=== PATIENT | male | born 1985 | race Caucasian/White ===

== ENCOUNTER 2024-11-19 07:00 | Emergency (ER) | payer OTHER, SELFPAY ==
--- NOTE | ~2024-11-19 | XR_ITS ---
EXAMINATION: XR LUMBOSACRAL SPINE CLINICAL INFORMATION: lowerback pain w/ radiation down L 4 COMPARISON: X-ray dated December 19, 2016 TECHNIQUE: Three views of the lumbosacral spine. FINDINGS: No acute cortical disruption or malalignment. No lytic or blastic lesions. Sclerosis and the sacroiliac joints, bilaterally. XR/XR lumbar spine 2-3V IMPRESSION: No acute fracture or gross listhesis. The possibility of a subtle grade 1 anterolisthesis at L5-S1 cannot be entirely excluded. Recommend CT versus MRI lumbar spine. Electronically signed by: Kevin Slade MD 11/19/2024 10:38 AM [facility]
--- NOTE | ~2024-11-19 | CT_ITS ---
EXAMINATION: CT LUMBAR SPINE WITHOUT CONTRAST CLINICAL INFORMATION: Lower back pain, severe. COMPARISON: No prior CT. Lumbar spine x-rays earlier same day. TECHNIQUE: CT imaging of the lumbar spine was done without IV contrast, utilizing spiral technique. Sagittal, coronal, and thin section axial reformatted images were constructed from the axial data set. This CT examination was performed using dose optimization techniques as appropriate, variously including the following: *Automated exposure control *Adjustment of mA and/or kV according to patient size (this includes techniques or standardized protocols for targeted exams where dose is matched to indication/reason for exam; i.e. extremities or head) *Use of iterative reconstruction technique DLP: 1094 mGy-cm FINDINGS: CORONAL ALIGNMENT: -Trace levoconvex scoliosis, possibly positional. SAGITTAL ALIGNMENT: - Normal lordosis. -There is a grade 1 spondylolisthesis L5 on S1 measuring 5 mm. Full-thickness L5 pars defects. -Sagittal alignment is otherwise normal. LUMBOSACRAL JUNCTION: -Normal. There are 5 [id number] lumbar-type vertebral bodies. VERTEBRAL BODIES/BONE: -Well maintained with normal height. No compression fractures, anomalies or other deformities. No suspicious bone lesions. DISCS: -Mild disc space narrowing noted L5-S1. Remainder of the intervertebral discs appear preserved. SPINAL CANAL: -Mild congenital spinal canal narrowing most notable spanning L2-L4. This is complicated by dorsal epidural lipomatosis. See below. AXIAL DISC SPACE IMAGES: T12-L1: No central canal or neural foraminal narrowing. Normal facets. L1-L2: Mild facet arthropathy bilaterally. Shallow diffuse disc bulge present. Dorsal epidural lipomatosis. Mild central canal narrowing. Mild neural foraminal narrowing bilaterally. L2-L3: Shallow diffuse disc bulge superimposed upon a congenitally narrow canal, with dorsal epidural lipomatosis. Mild bilateral hypertrophic degenerative facet changes. Mild central canal stenosis, and mild bilateral neural foraminal stenosis. L3-L4: Shallow diffuse disc bulge superimposed upon a congenitally narrow canal, with dorsal epidural lipomatosis. Mild hypertrophic degenerative facet changes bilaterally. Moderate central canal stenosis, moderate subarticular recess stenosis bilaterally, and mild to moderate bilateral neural foraminal stenosis. L4-L5: Shallow concentric disc bulge is present, mild dorsal and lateral epidural lipomatosis, mild arthritic hypertrophic facet changes, mild posterior ligamentous thickening/infolding, resulting in mild central canal narrowing, and mild to moderate bilateral neural foraminal narrowing. L5-S1: 5 mm, grade 1 spondylolisthesis. Full-thickness L5 pars defects. There is a diffuse disc osteophytic bulge, asymmetrically prominent to the right lateral and right foraminal zones. This indents upon the ventral thecal sac, but does not result in significant central canal narrowing. There is mild right lateral recess narrowing. There is severe right neural foraminal impingement. There is moderate left neural foraminal narrowing. IMAGED SI JOINTS: -Normal. PARAVERTEBRAL AND INCLUDED EXTRASPINAL SOFT TISSUES: -Hepatomegaly and fatty infiltration, partially imaged. -Probable size gallstones within an otherwise normal-appearing gallbladder. -Normal kidneys. Normal aorta. -Normal appendix and bowel structures. No lymphadenopathy. CT/CT lumbar spine wo IV con IMPRESSION: 1. There is a 5 mm grade 1 spondylolisthesis L5-S1. There is an associated disc bulge which is asymmetrically prominent to the right neural foramen at this level, resulting in severe right neural foraminal impingement. 2. No additional bony abnormalities aside from multilevel mild degenerative facet changes. 3. Congenital spinal canal narrowing is present spanning L2-L4, which is exacerbated by mild dorsal epidural lipomatosis at these levels. There is moderate central canal stenosis at L3-4. 4. Diffuse fatty infiltration of the liver with mild liver enlargement. 5. Cholelithiasis. 6. See the body the report for details and additional ancillary findings. Electronically signed by: Isidro Jloley MD 11/19/2024 02:25 PM [facility] [place]
[2024-11-19 07:08] VITALS: BP 123/78; PULSE 110; RESP 16; TEMP 37; O2SAT 96; BMI 42.9
[2024-11-19 08:53] VITALS: BP 117/79; PULSE 108; RESP 19; TEMP 36.6; O2SAT 95
[2024-11-19] MEDS: Ketorolac Tromethamine 30 MG/ML VIAL IM (09:38)
[2024-11-19] MEDS: Lidocaine 4 % Patch ADH..PATCH 1 PATCH TRANSDERMA (09:38)
--- NOTE | 2024-11-19 09:51 | ED_ITS ---
HPI - Back Pain/Injury General Chief Complaint: Back Pain/Injury Stated Complaint: back pain rad to feet/ numb toes Time Seen by Provider: 11/19/24 09:13 Source: patient Mode of arrival: ambulatory Limitations: no limitations History of Present Illness ED Provider: PARAMJIT Mojica HPI Narrative: 39-year-old male past medical history significant for former IV drug abuse, obesity presenting to the emergency department with low back pain ongoing for the past few weeks acutely worsening over the past few days. He thinks this pain started after twisting. Patient reports pain is worse with movement, better at rest or when lying on his side. Pain is predominantly felt to his right lower back and radiates down the back of his right lower extremity then moves to his anterior hyatt and down to his right foot. At times accompanied by tingling however no numbness. He has had pain like this in the past years ago. He recently had an x-ray which was done by his PCP which showed possible arthri tis per patient. He denies saddle anesthesias, trauma, urinary/bowel incontinence/retention, fevers, chills. Related Data Allergies Allergy/AdvReac Type Severity Reaction Status Date / Time bee pollen [BEE STINGS] Allergy Unknown SWELLING Verified 11/19/24 07:13 bee stings Allergy Unknown inflammatio Uncoded 08/28/23 15:23 n Review of Systems Review of Systems: Yes all other systems are reviewed and are negative [facility] Past Medical History Attestation statement: The following information was validated with the patient. Source: old records reviewed and nursing notes reviewed Social History Social History Advance Directives: No Advance Directives Information Provided: No Physical Exam Vital Signs: Vital Signs: Last Vital Signs Temp 97.9 F 11/19/24 08:53 Pulse 108 H 11/19/24 08:53 Resp 19 11/19/24 08:53 BP 117/79 11/19/24 08:53 Pulse Ox 95 11/19/24 08:53 O2 Del Method Room Air 11/19/24 08:53 BMI result Body Mass Index 42.9 vss Appearance: Alert.? Oriented X3.? No acute distress.? Head: Normocephalic, atraumatic, no step-offs or deformities Eyes: Pupils equal, round and reactive to light.? Neck: Normal inspection.? Neck supple.? CVS: Normal heart rate and rhythm.? Pulses normal.? Respiratory: No respiratory distress.? Breath sounds normal.? Abdomen: Soft and nontender.? Skin: Skin warm and dry.? Normal skin color.? Normal skin turgor.? Extremities: No lower extremity edema.? No calf ttp. 5/5 strength to bilateral upper and lower extremities Neuro: Oriented X 3.? No motor deficit.? No sensory deficit. CN 2-12 intact Course Reevaluation(s) Reevaluation #1: Patient received Toradol he still appears extremely uncomfortable he is unable to sit still. He is refusing narcotics due to his history of narcotic abuse. His x-ray lumbar spine as showing no acute fractures or gross C6 however a subtle grade 1 anterolisthesis of L5-S1 can not be entirely excluded due to patient's severity of symptoms and inability to sit still in severe pain will order CT noncontrast of lumbar spine to further evaluate this. Time: 11:51 Medications Administered Discontinued Medications Generic Name Dose Route Start Last Admin Trade Name Betoq PRN Reason Stop Dose Admin Ketorolac Tromethamine 30 mg 11/19/24 09:13 11/19/24 09:38 Ketorolac Tromethamine 30 Mg/Ml Vial IM 11/19/24 09:14 30 mg ONCE ONE Administration Lidocaine 1 patch 11/19/24 09:13 11/19/24 09:38 Lidocaine 4 % Patch Adh..Patch TRANSDERMA 11/19/24 09:14 1 patch ONCE ONE Administration Protocol Medical Decision Making Medical Decision Making [facility] Narrative: 39-year-old male presents with low back pain radiating down to his right lower extremity ongoing for the past few weeks acutely worsening over the past few days. Physical exam he has paraspinous tenderness in the lumbosacral region on the right. No saddle anesthesias. Neurological assessment nonfocal. No weakness appreciated. Patient ambulatory into room without difficulty. History and physical exam concerning for L4-L5 radiculopathy. Other differentials include facet mediated pain, herniated disc. Unlikely cauda equina, cord compression. Plan will obtain another x-ray, give Toradol, Lidoderm patch. Differential Diagnosis Differential Diagnoses: The differential diagnosis associated with the presentation includes (History and physical exam concerning for L4-L5 radiculopathy. Other differentials include facet mediated pain, herniated disc. Unlikely cauda equina, cord compression.) Admission/Observation Consideration of admission/observation: Escalation of care including admission/observation considered (No indication) Independent Interpretation I performed an independent interpretation of an: Plain X-Ray (XR/XR lumbar spine 2-3V IMPRESSION: No acute fracture or gross listhesis. The possibility of a subtle grade 1 anterolisthesis at L5-S1 cannot be entirely excluded. Recommend CT versus MRI lumbar spine. ) Radiology Impression Discussion of test interpretation with radiology: I have reviewed the radiologist's reading. Tests considered The following testing was considered but not selected: No indication for MRI no red flag symptoms. Prescription Management I considered prescription management with: Pain Medication and Other (Prednisone) Critical Care Time Critical Care Time Critical Care Time: Yes Total Critical Care Time: 35 Attestation: I attest to this time spent taking care of the patient, obtaining history, physical, reviewing labs, imaging, treatment of patients condition +/- specialist/hospitalist consult Discharge Plan Discharge Clinical Impression: Lumbar radiculopathy Patient Disposition: Home, Self-Care Print Language: Mauritian
[2024-11-19] MEDS: Acetaminophen 325 MG TABLET 975 MG PO (11:54)
[2024-11-19 13:49] VITALS: BP 118/81; PULSE 106; RESP 18; TEMP 36.7; O2SAT 96
[2024-11-19 16:14] VITALS: BP 118/81; PULSE 106; RESP 18; TEMP 36.7; O2SAT 96
== END 2024-11-19 16:18 | disposition home or self-care (01) ==
PROVIDERS: Emergency Provider Emergency Medicine; PCP Internal Medicine
DX: M54.16 Radiculopathy, lumbar region (principal); M54.2 Cervicalgia
CPT/HCPCS: 72100; 72131; 99283; J1885

== ENCOUNTER → 2024-11-19 09:51 | Outpatient (BNV) | payer OTHER, SELFPAY | PROVIDERS: Emergency Provider Emergency Medicine; PCP Internal Medicine; Visit Provider Radiology Diagnostic Radiology | DX: M54.59 Other low back pain (principal); M43.17 Spondylolisthesis, lumbosacral region; M48.062 Spinal stenosis, lumbar region with neurogenic claudication; K80.20 Calculus of gallbladder without cholecystitis without obstruction | CPT/HCPCS: 72100; 72131 ==

== ENCOUNTER 2024-12-08 11:37 | Emergency (ER) | payer OTHER, SELFPAY ==
--- NOTE | ~2024-12-08 | CT_ITS ---
CLINICAL HISTORY: lower back pain CT abdomen and pelvis with contrast Comparison: CT - CT ABDOMEN PELVIS W IV CON - 12/08/24 16:[address]/CO/SR - CT LUMBAR SPINE WO IV CON - 11/19/24 12:34 EST Findings: The lung bases are clear. Calculi within the gallbladder lumen. Diffusely decreased hepatic density. Remaining solid organs are within normal limits. No bowel obstruction, pneumoperitoneum, or pneumatosis. Pelvic contents unremarkable. Normal appendix. Grade 1 anterolisthesis of L5 on S1. Bilateral L5-S1 pars interarticularis defects. IMPRESSION: 1. No acute process. 2. Cholelithiasis. 3. Hepatic steatosis. 5. Grade 1 isthmic spondylolisthesis at L5-S1 This document has been electronically signed by: Sharon Ring MD on 12/08/2024 17:54:02
--- NOTE | ~2024-12-08 | CT_ITS ---
CLINICAL HISTORY: lower back pain CT lumbar spine without contrast Comparison: CT/TX/SR - CT LUMBAR SPINE WO IV CON - 11/19/24 12:34 EST Findings: Grade 1 anterolisthesis of L5 on S1. No acute fractures or dislocations. Bilateral L5-S1 pars interarticularis defects Multilevel disc space narrowing and endplate osteophyte formation, as well as facet hypertrophy. Normal visualized abdominal contents. IMPRESSION: 1. No acute process. 2. Grade 1 isthmic spondylolisthesis at L5-S1. This document has been electronically signed by: Sharon Ring MD on 12/08/2024 18:23:08
[2024-12-08 11:47] VITALS: BP 158/98; PULSE 83; O2SAT 98
[2024-12-08 11:52] VITALS: BP 140/70; PULSE 96; RESP 18; TEMP 36.8; O2SAT 95; BMI 42.2
--- NOTE | 2024-12-08 11:54 | ED_ITS ---
HPI - General Adult General Chief complaint: Back Pain/Injury Stated complaint: SCIATICA PAIN Time Seen by Provider: 12/08/24 11:48 Source: patient Mode of arrival: EMS Limitations: no limitations History of Present Illness HPI narrative: This is a 39-year-old man with a past medical history of IVDU (this is a were 15 years, on methadone) presents by EMS for evaluation of back pain. Patient reports that he was here 2 weeks ago with the same right lower back pain. Patient reports that he woke up this morning having pain in his right lower back radiating down the entirety of his right leg. He states no traumatic injury. He states no fevers or chills. He states no lower extremity or saddle paresthesias. He states no incontinence of urine or stool. He states no urinary retention or obstipation. He states no chest pain or dyspnea. He states no abdominal pain. He states no spinal surgery. He states taking no blood thinning medications. He states that he took gabapentin earlier for pain, but states he did not take any acetaminophen or NSAIDs. Related Data Previous Rx's ?Medication ?Instructions ?Recorded acetaminophen 325 mg tablet 650 mg (2 x 325 mg) PO Q6H PRN 11/19/24 (Tylenol) fever or pain #30 tabs cyclobenzaprine 10 mg tablet 10 mg PO BEDTIME PRN muscle spasm 11/19/24 #7 tabs diazepam 2 mg tablet (Valium) 2 mg PO BID PRN muscle spasm #10 11/19/24 tabs ketorolac 10 mg tablet 10 mg PO TID PRN pain 5 days #15 11/19/24 tabs prednisone 20 mg tablet 40 mg (2 x 20 mg) PO DAILY 5 days 11/19/24 #10 tabs cyclobenzaprine 10 mg tablet 10 mg PO TID PRN muscle spasm #14 12/08/24 tabs Allergies Allergy/AdvReac Type Severity Reaction Status Date / Time bee pollen [BEE STINGS] Allergy Unknown SWELLING Verified 12/08/24 11:56 bee stings Allergy Unknown inflammatio Uncoded 08/28/23 15:23 n Review of Systems 2 Review of Systems: ROS as per HPI Physical Exam ED Vital Signs: Vital Signs - 24 hr 12/08/24 11:52 12/08/24 17:21 Temperature 98.3 F 98.1 F Pulse Rate 96 80 Respiratory Rate 18 18 Blood Pressure 140/70 H 137/76 Pulse Oximetry 95 94 Oxygen Delivery Method Room Air Room Air BMI result Body Mass Index 42.2 Gen: NA0 albeit overtly uncomfortable appearing, AOx3 HEENT: NCAT, EOMI, normal conjunctiva CV: RRR, no murmurs appreciated, 2+ bilateral DP/PT pulses Pulm: CTAB, no increased work of breathing GI: Soft, NTND, no rebound, guarding or rigidity, no b/l CVAT MSK: No midline vertebral tenderness to palpation overlying skin changes/crepitus, bilateral lower extremity compartments are soft with intact overlying skin, 5/5 strength with bilateral hip/knee/ankle/hallux flexion/extension Neuro: Grossly non focal, sensation intact to light touch in bilateral lower extremity dermatomes L2-S2 Medications Administered Discontinued Medications Generic Name Dose Route Start Last Admin Trade Name Freq PRN Reason Stop Dose Admin Acetaminophen 975 mg 12/08/24 11:52 12/08/24 12:02 Acetaminophen 325 Mg Tablet PO 12/08/24 11:53 975 mg ONCE ONE Administration Cyclobenzaprine HCl 10 mg 12/08/24 13:57 12/08/24 14:25 Cyclobenzaprine Hcl 10 Mg Tablet PO 12/08/24 13:58 10 mg ONCE ONE Administration Diazepam 5 mg 12/08/24 12:34 12/08/24 12:39 Diazepam 5 Mg Tablet PO 12/08/24 12:35 5 mg ONCE ONE Administration Sodium Chloride 1,000 mls @ 999 mls/hr 12/08/24 14:00 12/08/24 14:22 Ns IV 12/08/24 15:00 999 mls/hr .Q1H1M ABHISHEK Administration Iohexol 100 ml 12/08/24 16:39 12/08/24 16:39 Iohexol 350 Mg/Ml 100 Ml Infus..Btl IV 12/08/24 16:40 85 ml ONCE ONE Administration Ketorolac Tromethamine 30 mg 12/08/24 11:49 12/08/24 12:02 Ketorolac Tromethamine 30 Mg/Ml Vial IM 12/08/24 11:50 30 mg ONCE ONE Administration Lidocaine 1 patch 12/08/24 11:49 12/08/24 12:01 Lidocaine 4 % Patch Adh..Patch TRANSDERMA 12/08/24 11:50 1 patch ONCE ONE Administration Protocol Medical Decision Making Medical Decision Making [facility] Narrative: Differential diagnosis includes, but is not limited to spinal stenosis, herniated disc, lumbar radiculopathy, strain. Patient is afebrile and hemodynamically stable on room air. Exam is benign and reassuring. Patient has no focal neurological deficits that would suggest cord compression or need for emergent MRI. Given patient's history exam with a recent CT imaging and no interval trauma or ?red flag? symptoms I do not think that repeat imaging is indicated at this time otherwise. I suspect that this is likely a musculoskeletal etiology pain with associated radiculopathy. I reviewed recent imaging from November 19, 2024 demonstrating spondylolisthesis at L5-S1 and associated disc bulge. Congenital spinal canal narrowing spanning L2-L4 and moderate central canal stenosis L3-L4. Patient was treated supportively with Toradol, Lidoderm patch and Tylenol. On reexamination, patient endorses ongoing severe pain. Thus, will obtain CT imaging and expand differential to include biliary colic, nephrolithiasis, ureterolithiasis. I will attempt to provide additional pain relief with valium. We will obtain screening blood work. On reexamination, patient reports ongoing pain although a CT imaging results. We provided cyclobenzaprine. Repeat CT imaging as below unremarkable for any acute abnormalities. On re-examination, patient is well-appearing and in no acute distress. ?Patient states symptoms have significantly improved after cyclobenzaprine and he ambulates independently. ?There is no indication for further emergent evaluation in this otherwise well-appearing patient as above. ?Patient is provided written and verbal instructions, educational materials, prescription for cyclobenzaprine, referral to spine Center, recommendations for outpatient follow-up, strict return precautions and teach back is performed. ?Patient states understanding and agreement with plan of care. ?Patient is discharged home in stable and improved condition. Critical Care Time: A total of 45 minutes spent in direct patient care with coordinating critical resuscitation, procedures, reviewing records, discussing with consultants, reviewing labs, and/or managing patient. Admission/Observation Consideration of admission/observation: Escalation of care including admission/observation considered Lab Data [facility] Lab Attestation statement: I reviewed the patient's lab results. I independently reviewed and interpreted patient's blood work, which demonstrates a leukocytosis of 15.1 (which I think is reactive in nature and secondary to patient's sciatica pain), stable anemia with hemoglobin 13.7, metabolic panel is unremarkable. Lipase within normal limits. 12/08/24 14:19 12/08/24 14:57 Labs: Lab Results 12/08/24 12/08/24 Range/Units 14:19 14:57 WBC 15.1 H (4.8-10.8) X10*3/uL RBC 4.53 L (4.60-5.80) X10*6/uL Hgb 13.7 L (14.0-18.0) g/dl Hct 41.3 L (42.0-52.0) % MCV 91.2 (80.0-98.0) fL MCH 30.2 (27.0-33.0) pg MCHC 33.2 (31.0-36.0) g/dl RDW 13.1 (11.0-16.0) % Plt Count 243 (160-400) X10*3/uL MPV 9.1 L (9.4-12.4) fL Immature Gran % (Auto) 1.1 H (0.0-0.4) % Neut % (Auto) 73.7 H (45-73) % Lymph % (Auto) 19.0 L (20-40) % [place] % (Auto) 5.3 (2-11) % Eos % (Auto) 0.5 (0-4) % Baso % (Auto) 0.4 (0-2) % Lymph # (Auto) 2.9 (1.2-4.9) X10*3/uL [place] # (Auto) 0.8 (0.1-1.2) X10*3/uL Eos # (Auto) 0.1 (0.0-0.4) X10*3/uL Baso # (Auto) 0.1 (0.0-0.2) X10*3/uL Abs Immat Gran (auto) 0.16 H (0.00-0.03) X10*3/uL Absolute Neuts (auto) 11.1 H (2.0-8.3) x10*3/uL Absolute Nucleated RBC 0.000 (0.0-0.012) X10*3/uL Nucleated RBC % (auto) 0.0 (0.0-0.2) /100WBC Sodium 135 (135-145) mmol/L Potassium 3.9 (3.3-5.1) mmol/L Chloride 103 (96-108) mmol/L Carbon Dioxide 27 (22-29) mmol/L Anion Gap 9 L (12-20) BUN 10 (9-16) mg/dL Creatinine 0.57 (0.5-1.4) mg/dL Estim Creat Clear Calc 258.2 Estimated GFR > 60 Random Glucose 112 (60-115) mg/dL Calcium 8.2 L (8.4-10.2) mg/dL Total Bilirubin 0.3 (0.0-1.0) mg/dL Direct Bilirubin 0.1 (0.0-0.5) mg/dL AST 21 (5-37) U/L ALT 28 (0-40) U/L Alkaline Phosphatase 66 (39-117) U/L Total Protein 7.8 (6.5-8.0) g/dL Albumin 3.6 (3.5-5.0) g/dL Lipase 28 (8-78) U/L Radiology Impression Discussion of test interpretation with radiology: I have reviewed the radiologist's reading. Radiologist Impression: XR/XR lumbar spine 2-3V IMPRESSION: No acute fracture or gross listhesis. The possibility of a subtle grade 1 anterolisthesis at L5-S1 cannot be entirely excluded. Recommend CT versus MRI lumbar spine. Electronically signed by: Kevin Slade MD 11/19/2024 10:38 AM [facility] [place] CT/CT lumbar spine wo IV con IMPRESSION: 1. There is a 5 mm grade 1 spondylolisthesis L5-S1. There is an associated disc bulge which is asymmetrically prominent to the right neural foramen at this level, resulting in severe right neural foraminal impingement. 2. No additional bony abnormalities aside from multilevel mild degenerative facet changes. 3. Congenital spinal canal narrowing is present spanning L2-L4, which is exacerbated by mild dorsal epidural lipomatosis at these levels. There is moderate central canal stenosis at L3-4. 4. Diffuse fatty infiltration of the liver with mild liver enlargement. 5. Cholelithiasis. 6. See the body the report for details and additional ancillary findings. Electronically signed by: Isidro Jolley MD 11/19/2024 02:25 PM [facility] [place] IMPRESSION: 1. No acute process. 2. Cholelithiasis. 3. Hepatic steatosis. 5. Grade 1 isthmic spondylolisthesis at L5-S1 This document has been electronically signed by: Sharon Ring MD on 12/08/2024 17:54:02 Dictated By: Sharon Ring MD Signed By: <Electronically signed by Sharon Ring MD in OV> 12/08/24 [id number] Discharge Plan Discharge Clinical Impression: Lumbar radiculopathy Patient Disposition: Home, Self-Care Instructions: Lumbar Radiculopathy (ED) Additional Instructions: You were seen and evaluated in the emergency room. Your vital signs were reassuring. Your blood work was very reassuring. Your CT scan showed Grade 1 isthmic spondylolisthesis at L5-S1 , which is the likely cause of your back pain with associated sciatica. Please take 600 mg ibuprofen every 6 hours for pain. Please always take this with food and water. Please also take 1000 mg Tylenol every 8 hours for additional pain relief. You are given a short course of muscle relaxants. Please take as directed. Please do not drink alcohol, drive, operate heavy machinery or making important/legal decisions while taking this medication. Please follow-up with your primary care doctor in the next 5-7 days. ? You were given a referral to follow up with [facility]. Please follow up in the next 1-2 weeks. Please return to the emergency room if you develop any worsening symptoms. Prescriptions: New cyclobenzaprine 10 mg tablet 10 mg PO TID PRN (Reason: muscle spasm) Qty: 14 0RF No Action cyclobenzaprine 10 mg tablet 10 mg PO BEDTIME PRN (Reason: muscle spasm) Qty: 7 0RF acetaminophen [Tylenol] 325 mg tablet 650 mg PO Q6H PRN (Reason: fever or pain) Qty: 30 0RF ketorolac 10 mg tablet 10 mg PO TID PRN (Reason: pain) 5 Days Qty: 15 0RF Rx Instructions: Tolerated IM or IV in department diazepam [Valium] 2 mg tablet 2 mg PO BID PRN (Reason: muscle spasm) Qty: 10 0RF prednisone 20 mg tablet 40 mg PO DAILY 5 Days Qty: 10 0RF Referrals: [facility] Spine [facility] [Provider Group] Print Language: Comoran
[2024-12-08] MEDS: Lidocaine 4 % Patch ADH..PATCH 1 PATCH TRANSDERMA (12:01)
[2024-12-08] MEDS: Ketorolac Tromethamine 30 MG/ML VIAL IM (12:02)
[2024-12-08] MEDS: Acetaminophen 325 MG TABLET 975 MG PO (12:02)
[2024-12-08] MEDS: diazePAM 5 MG TABLET PO (12:39)
[2024-12-08] MEDS: 0.9 % Sodium Chloride 1,000 ML 999 ML IV (14:22)
[2024-12-08 14:23] LABS: MANUAL DIFF FLAG NO
[2024-12-08 14:24] LABS: Basophils Absolute Auto 0.1 X10*3/uL (0.0-0.2); Basophils Percent Auto 0.4 % (0-2); Eosinophils Absolute Auto 0.1 X10*3/uL (0.0-0.4); Eosinophils Percent Auto 0.5 % (0-4); Hematocrit 41.3 % (42.0-52.0); Hemoglobin 13.7 g/dl (14.0-18.0); Imm Gran Abs Auto 0.16 X10*3/uL (0.00-0.03); Imm Gran Pct Auto 1.1 % (0.0-0.4); Lymphocytes Absolute Auto 2.9 X10*3/uL (1.2-4.9); Mean Corpuscular HGB Conc 33.2 g/dl (31.0-36.0); Mean Corpuscular Hemoglobin 30.2 pg (27.0-33.0); Mean Corpuscular Volume 91.2 fL (80.0-98.0); Mean Platelet Volume 9.1 fL (9.4-12.4); Monocytes Absolute Auto 0.8 X10*3/uL (0.1-1.2); Monocytes Percent Auto 5.3 % (2-11); Neutrophils Absolute Auto 11.1 x10*3/uL (2.0-8.3); Neutrophils Percent Auto 73.7 % (45-73); Platelet Count 243 X10*3/uL (160-400); Red Blood Count 4.53 X10*6/uL (4.60-5.80); Red Cell Distribution Width 13.1 % (11.0-16.0); White Blood Count 15.1 X10*3/uL (4.8-10.8)
[2024-12-08] MEDS: Cyclobenzaprine HCl 10 MG TABLET PO (14:25)
--- OUTSIDE RECORDS SUMMARY | 2024-12-08 14:28 | XMS_ITS | Clinical Summary ---
Author Organization [address] Address [address] [place] [id number] Phone Care Team Providers Care Slicing Machine Operator/Tender Name Role Phone Beni Herndon MD Primary Care Provider [phone] Allergies Active Allergy Reactions Criticality Noted Date Comments Other Swelling 01/08/2017 Prednisone Swelling 01/08/2017 Medications Medication Sig Dispensed Refills Start Date End Date Status methadone (DOLOPHINE) 10 mg/mL concentrated solution Take by mouth. Takes 151 mg daily Active omeprazole (PriLOSEC) [address] capsule Take 1 capsule (20 mg total) by mouth 1 (one) time each day. 90 each 1 10/20/2024 10/15/20 25 Active methylPREDNISolon e (MEDROL) 4 mg tabletIndications :Acute right-sided low back pain with right-sided sciatica,Hospital discharge follow-up Take 6 tabs PO on day 1, 5 tabs PO on day 2, 4 tabs PO on day 3, 3 tabs PO on day 2, 2 tabs PO on day 5 and 1 tab PO on day 6. 21 tablet 11/29/2024 Active gabapentin (NEURONTIN) 100 mg capsuleIndication s:Acute right-sided low back pain with right-sided sciatica,Hospital discharge follow-up Take 1 capsule (100 mg total) by mouth 3 (three) times a day. 90 each 11/29/2024 Active diclofenac (VOLTAREN) 50 mg EC tabletIndications :Acute right-sided low back pain with right-sided sciatica,Hospital discharge follow-up Take 1 tablet (50 mg total) by mouth 2 (two) times a day. Do not crush, chew, or split. 60 each 11/29/2024 12/29/19 25 Active levothyroxine (SYNTHROID, LEVOTHROID) 88 mcg tablet Take 1 tablet (88 mcg total) by mouth 1 (one) time each day. 90 each 3 12/01/2024 12/01/19 26 Active loperamide (IMODIUM A-D) 2 mg tablet Take 1 tablet (2 mg total) by mouth. 07/05/2024 11/29/19 25 Discontinued levothyroxine (SYNTHROID, LEVOTHROID) 75 mcg tablet Take 1 tablet (75 mcg total) by mouth 1 (one) time each day. 08/11/2024 12/01/19 25 Discontinued amoxicillin-clavu lanate (AUGMENTIN) 875-125 mg per tablet Take 1 tablet by mouth 2 (two) times a day. 14 each 10/20/2024 11/29/19 25 Discontinued clotrimazole (LOTRIMIN) 1 % cream Apply topically 2 (two) times a day. Affected area in groin 30 g 1 10/20/2024 11/29/19 25 Discontinued diclofenac (VOLTAREN) 50 mg EC tablet Take 1 tablet (50 mg total) by mouth 2 (two) times a day. Do not crush, chew, or split. 28 tablet 11/11/2024 11/29/19 25 Discontinued(Ursula eric) Active Problems Problem Noted Date Diagnosed Date Cholelithiasis 07/07/2024 Overview (10/06/2024): Patient was having generalized abdominal discomfort, most consistent with viral illness. Labs that showed elevated white count so CT was obtained. The CT did show some evidence of gallstones without any wall thickening. There is no evidence of cholecystitis. 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 Gastroesophageal reflux disease without esophagi tis 04/23/2017 Iron deficiency anemia 04/22/2017 Morbid obesity 04/22/2017 Anterolisthesis 12/25/2016 Hypothyroidism 12/25/2016 Opioid dependence in remission 12/25/2016 Encounters Date Type Department Care Team Description 12/06/2024 8:30 AM EST Treatment Outpatient [address] [phone] Miguelangel Padilla, SEAFOOD CLERK Acute low back pain with sciatica, sciatica laterality unspecified, unspecified back pain laterality (Primary Dx) 12/02/2024 1:00 PM EST Evaluation Outpatient Rehabilitation [address] [phone] Neto Diaz, PT Acute low back pain with sciatica, sciatica laterality unspecified, unspecified back pain laterality (Primary Dx) 12/02/2024 Plan of Care Documentation Outpatient [facility] - [address] [phone] 11/29/2024 10:30 AM EST Office Visit Adult [address] [phone] Jesus Monahan NP Acute right-sided low back pain with right-sided sciatica (Primary Dx); Hospital discharge follow-up 11/23/2024 Telephone Adult Medicine [address] [phone] Beni Herndon MD 11/23/2024 Telephone Adult [address] [phone] Beni Herndon MD 11/11/2024 8:55 AM EST - 11/11/2024 11:59 PM EST Hospital Encounter XRAY [address] [phone] Acute right-sided low back pain with right-sided sciatica Discharge Disposition: Home or Self Care 11/11/2024 8:30 AM EST Office Visit Adult [address] [phone] Cj Esquivel PA Routine general medical examination at a health care facility (Primary Dx); Genital warts; Sleep apnea, unspecified type; Acute right-sided low back pain with right-sided sciatica 10/20/2024 3:45 PM EST Office Visit Adult Medicine [address] [place] [phone] Kelvin Santillan MD Boil of inguinal region (Primary Dx); Intertriginous candidiasis 10/06/2024 12:00 PM EST Office Visit Adult Medicine [address] [phone] Cj Esquivel PA Methadone maintenance therapy patient (CMS/HCC) (Primary Dx) from Last 3 Months Immunizations Name Administration Dates Next Due Tdap Tetanus diptheria acell ular pertussis (Boostrix; Adacel) 7yo and older 11/11/2024 Medical History Medical History Date Comments Foot drop DX:Foot drop Overweight DX:Overweight Opiate dependence (CMS/HCC) DX:O piate dependence (HCC) Hypothyroid DX:Hypothyroid Cholelithiasis 07/07/2024 DX:Cholelithiasi s; COMMENT: Patient was having generalized abdominal discomfort, most consistent with viral illness. Labs that showed elevated white count so CT was obtained. The CT did show some evidence of gallstones without any wall thickening. There is no evidence of cholecystitis. Family History Medical History Relation Name Comments Colon cancer Maternal Grandfather Thyroid disease Mother Breast cancer Neg Hx Relation Name Status Comments Maternal Grandfather Mother Social History Tobacco Use Types Packs/Day Years Used Date Smoking Tobacco: Every Day Cigarettes Smokeless Tobacco: Never Tobacco Cessation:Ready to Q uit: Not Asked; Counseling Given: Not Answered Alcohol Use Standard Drinks/Week Comments Not Currently 0 (1 standard drink = 0.6 oz pur e alcohol) Housing Instability Answer Date Recorde d Are you worried that in the next 2 months you may not have stable housing? No 10/06/2024 Food Access & Nutrition Answer Date Rec orded Do you have access to a vari ety of food including fruits and vegetables? Yes 10/06/2024 Access to Healthcare Answer Date Record ed Within the last 3 months, kassie [employer] many times did you visit the emergency department for your medical care? 0 10/06/2024 Health Literacy Answer Date Recorded How often do you need to hav e someone help you when you read instructions, pamphlets, or other written material from your doctor or pharmacy? Never 10/06/2024 Caregiver: How often do you need to have someone help you when you read instructions, pamphlets, or other written material from your doctor or pharmacy? Not on file 10/06/2024 Financial Risk Answer Date Recorded How hard is it for you to pa y for the very basics like food, housing, medical care, and air conditioning / heating? Somewhat hard 10/06/2024 Transportation Answer Date Recorded Has the lack of transportati on kept you from meetings, work, or from getting things needed for daily living? No Has the lack of transportati on kept you from medical appointments or from getting medications? No 10/06/2024 Social Isolation Answer Date Recorded How often do you feel lonely or isolated from th ose around you? Rarely 10/06/2024 Food Risk Answer Date Recorded Within the past 12 months we worried whether our food would run out before we got money to buy more. Sometimes true 024 Within the past 12 months th e food we bought just didn't last and we didn't have money to get more. Sometimes true 10/06/2024 Dependent Care Answer Date Recorded Do you need help finding or paying for care for your loved ones. For example, child and adolescent psychologist or elderly care for an older adult? No 10/06/2024 Education Answer Date Recorded Do you think completing more education or training, like finishing a GED, going to college, or learning a trade, would be helpful for you? No 10/06/2024 Employment and Income Answer Date Recor ded During the last four weeks, have you been actively looking for work? Patient declined 10/06/2024 Living Situation Answer Date Recorded What is your living situation? 1 12/06/2023 Sex and Gender Information Value Date Recorded Sex Assigned at Male 04/19/2024 7:35 AM EDT Gender Identity Male 04/19/2024 7:35 AM EDT Sexual Orientation Straight 04/19/2024 7: 35 AM EDT Job Start Date Occupation Industry Not on file Not on file Not on file Obstetrics History Last Filed Vital Signs Vital Sign Reading Time Taken Comments Blood Pressure 126/78 11/29/2024 10:19 AM EST Pulse 115 11/29/2024 10:19 AM EST Temperature 36.6 ??C (97.8 ??F) 11/29/2024 10:[address] Respiratory Rate 18 11/29/2024 10:19 AM EST Oxygen Saturation 97% 11/11/2024 8:20 AM EST Inhaled Oxygen Concentration - - Weight 146 kg (321 lb) 11/29/2024 10:19 AM EST Height 190.5 cm (6' 3 ) 11/29/2024 10:19 AM EST Body Mass Index 40.12 11/29/2024 10:19 AM EST Plan of Treatment Upcoming Encounters Date Type Department Care Team (Late st Contact Info) Description 12/13/2024 9:30 AM EST Treatment Outpatient Rehabilitation - [address] [phone] Miguelangel Padilla, SEAFOOD CLERK 12/17/2024 8:30 AM EST Treatment Outpatient Rehabilitation - [address] [phone] Miguelangel Padilla, SEAFOOD CLERK 01/03/2025 9:15 AM EST Office Visit Adult Medicine [address] [phone] Cj Esquivel PA [address] [place], [place] Health Maintenance Due Date Last Done Comments Pneumococcal Vaccine: Pediatrics (0 to 5 Years) and At-Risk Patients (6 to 64 Years) (1 of 2 - PCV) 1990 Hepatitis B Vaccines (1 of 3 - 19+ 3-dose series) 2003 HIV Screening 10/13/2022 Hepatitis C Screening 10/13/2022 COVID-19 Vaccine (4 - 2023-2 5 season) 2024 04/18/2022, 03/24/2021, 03/02/2021 Influenza Vaccine (#1) 2024 Social Influencers of Health Screening 10/06/2025 10/06/2024 Depression Screening 11/28/2025 11/28/2024 Cholesterol Screening (Lipid Panel) 11/29/2029 11/29/2024 DTaP,Tdap,and Td Vaccines (2 - Td or Tdap) 11/11/2034 11/11/2024 HIB Vaccines Aged Out No longer eligi ble based on patient's age to complete this topic HPV Vaccines Aged Out No longer eligi ble based on patient's age to complete this topic Hepatitis A Vaccines Aged Out No long er eligible based on patient's age to complete this topic IPV Vaccines Aged Out No longer eligi ble based on patient's age to complete this topic MMR Vaccines Aged Out No longer eligi ble based on patient's age to complete this topic Meningococcal ACWY Vaccine Aged Out N o longer eligible based on patient's age to complete this topic RSV Immunization Patients Under 20 months Aged Out No longer eligible b ased on patient's age to complete this topic Varicella Vaccines Aged Out No longer eligible based on patient's age to complete this topic Goals Goal Patient Goal Type Associated Problems Recent Progress Patient-Stated? Author STG's 6 visits General Yes Neto Diaz, PT Note: Pt is Independent and compliant with initial HEP. Pt will perform correct technique for sup<->sit transfers w/ min VC's in 5/5 trials. Pt will report R LBP that does not extend beyond R buttock when sitting to use computer. Pt will report LBP of no more than 4/10 on VAS first thing in the morning. LTG's 12 visits General Yes Neto Diaz, PT Note: Pt will be Independent and compliant with final HEP. Pt will I demonstrate proper technique for sup<->sit transfers in 5/5 trials. Pt will report R LBP that does not extend when sitting to use computer. Pt will report LBP of no more than 2/10 on VAS first thing in the morning. Procedures Procedure Name Priority Date/Time Associated Diagnosis Comments COMPREHENSIVE METABOLIC PANEL Routine 11/29/2024 11:28 AM EST Routine general medical examination at a health care facility THYROID STIMULATING HORMONE Routine 11/29/2024 11:28 AM EST Routine general medical examination at a health care facility LIPID PANEL WITH REFLEX TO DIRECT LDL Routine 11/29/2024 11:28 AM EST Routine general medical examination at a health care facility COMPLETE BLOOD COUNT Routine 11/29/2024 11:28 AM EST Routine general medical examination at a health care facility XR LUMBAR SPINE 4+ VIEWS Routine 11/11/2024 9:08 AM EST Acute right-sided low back pain with right-sided sciatica ECG 12-LEAD Routine 10/06/2024 2:13 PM EST Methadone maintenance therapy patient (CMS/HCC) from Last 3 Months Results * (ABNORMAL) Lipid panel with reflex to direct LDL (11/29/2024 11:28 AM EST) Cholesterol 217(H) 0 - 200 mg/dL LAB CHEMISTRY METHOD 11/29/2024 3:43 PM EST [facility] Triglycerides 314(H) 0 - 150 mg/dL LAB CHEMISTRY METHOD 11/29/2024 3:43 PM EST [facility] HDL 41 >=40 mg/dL LAB CHEMISTRY METHOD 11/29/2024 3:43 PM EST [facility] LDL Calculated 113(H) 0 - 100 mg/dL LAB CHEMISTRY METHOD 11/29/2024 3:43 PM EST [facility] VLDL Cholesterol Cezar 62.8 mg/dL LAB CHEMISTRY METHOD 11/29/2024 3:43 PM EST [facility] Non HDL Chol. (LDL+VLDL) 176(H) <145 mg/dL LAB CHEMISTRY METHOD 11/29/2024 3:43 PM EST [facility] Chol/HDL Ratio 5.3(H) 0.0 - 4.4 LAB CHEMISTRY METHOD 11/29/2024 3:43 PM EST [facility] Blood Venous blood specimen / Unknown Venipuncture / Unknown 11/29/2024 11:28 AM EST 11/29/2024 11:28 AM EST Cj YUSUF LAB BLOOD ORDERA BLES [facility] [address] [place] [address], * (ABNORMAL) Complete blood count (11/29/2024 11:28 AM EST) [facility] WBC 16.1(H) 4.8 - 10.8 K/mcL LAB HEMETOLOGY METHOD 11/29/2024 2:[address] [facility] RBC 4.60 4.50 - 5.50 M/mcL LAB HEMETOLOGY METHOD 11/29/2024 2:[address] [facility] Hemoglobin 14.0 13.5 - 17.5 g/dL LAB HEMETOLOGY METHOD 11/29/2024 2:[address] [facility] Hematocrit 43.5 42.0 - 54.0 % LAB HEMETOLOGY METHOD 11/29/2024 2:[address] [facility] MCV 93.8 79.0 - 98.0 FL LAB HEMETOLOGY METHOD 11/29/2024 2:[address] [facility] MCH 30.2 27.0 - 32.0 pcg LAB HEMETOLOGY METHOD 11/29/2024 2:[address] [facility] MCHC 32.2 32.0 - 37.0 g/dL LAB HEMETOLOGY METHOD 11/29/2024 2:[address] [facility] RDW 13.2 11.0 - 15.0 % LAB HEMETOLOGY METHOD 11/29/2024 2:[address] [facility] Platelets 293 130 - 400 K/mcL LAB HEMETOLOGY METHOD 11/29/2024 2:[address] [facility] MPV 10.0 7.0 - 11.0 FL LAB HEMETOLOGY METHOD 11/29/2024 2:[address] [facility] NRBC 0.0 <1.0 % LAB HEMETOLOGY METHOD 11/29/2024 2:[address] [facility] NRBC Absolute 0.00 <0.10 K/mcL LAB HEMETOLOGY METHOD 11/29/2024 2:23 PM EST [facility] Blood Venous blood specimen / Unknown Venipuncture / Unknown 11/29/2024 11:28 AM EST 11/29/2024 11:28 AM EST Cj YUSUF LAB BLOOD ORDERA BLES [facility] [address] [place] [address], [place] [phone] * (ABNORMAL) Thyroid stimulating hormone (11/29/2024 11:28 AM EST) Pathologist [facility] TSH 4.59(H) 0.40 - 4.00 mcIU/mL LAB CHEMISTRY METHOD 11/29/2024 3:[address] [facility] Blood Venous blood specimen / Unknown Venipuncture / Unknown 11/29/2024 11:28 AM EST 11/29/2024 11:28 AM EST Cj YUSUF LAB BLOOD ORDERA BLES [facility] [address] [place] [address], [place] [phone] * (ABNORMAL) Comprehensive metabolic panel (11/29/2024 11:28 AM EST) Pathologist [facility] Sodium 135 133 - 145 mmol/L LAB CHEMISTRY METHOD 11/29/2024 3:[address] [facility] Potassium 3.9 3.5 - 5.5 mmol/L LAB CHEMISTRY METHOD 11/29/2024 3:[address] [facility] Chloride 99 96 - 110 mmol/L LAB CHEMISTRY METHOD 11/29/2024 3:[address] [facility] CO2 31 21 - 32 mmol/L LAB CHEMISTRY METHOD 11/29/2024 3:[address] [facility] Anion Gap 5 3 - 11 LAB CHEMISTRY METHOD 11/29/2024 3:[address] [facility] Glucose 115(H) 70 - 100 mg/dL LAB CHEMISTRY METHOD 11/29/2024 3:[address] [facility] BUN 15 5 - 25 mg/dL LAB CHEMISTRY METHOD 11/29/2024 3:[address] [facility] Creatinine 0.79 0.70 - 1.30 mg/dL LAB CHEMISTRY METHOD 11/29/2024 3:[address] [facility] eGFR 115 >=60 mL/min/1. 73m2 LAB CHEMISTRY METHOD 11/29/2024 3:[address] [facility] Comment:Calculation based on the??Chronic Kidney Disease Epidemiology Collaboration (CKD-EPI) equation refit??without adjustment for race. BUN/Creatinine Ratio 19.0 LAB CHEMISTRY METHOD 11/29/2024 3:[address] [facility] Calcium 9.4 8.5 - 10.5 mg/dL LAB CHEMISTRY METHOD 11/29/2024 3:[address] [facility] AST (SGOT) 27 10 - 42 unit/L LAB CHEMISTRY METHOD 11/29/2024 3:[address] [facility] ALT (SGPT) 43 10 - 60 unit/L LAB CHEMISTRY METHOD 11/29/2024 3:[address] [facility] Alkaline Phosphatase 82 42 - 121 unit/L LAB CHEMISTRY METHOD 11/29/2024 3:[address] [facility] Total Protein 8.5(H) 6.0 - 8.0 g/dL LAB CHEMISTRY METHOD 11/29/2024 3:[address] [facility] Albumin 3.9 3.2 - 5.0 g/dL LAB CHEMISTRY METHOD 11/29/2024 3:[address] [facility] Total Bilirubin 0.5 0.0 - 1.4 mg/dL LAB CHEMISTRY METHOD 11/29/2024 3:[address] [facility] Blood Venous blood specimen / Unknown Venipuncture / Unknown 11/29/2024 11:28 AM EST 11/29/2024 11:28 AM EST Cj YUSUF LAB BLOOD ORDERA BLES [facility] [address] [place] [address], * XR Lumbar Spine 4+ Views (11/11/2024 9:08 AM EST) Anatomical Region Laterality Modality Spine, L-spine Radiographic Rose ging 11/11/2024 10:4 1 AM EST Impressions 11/11/2024 10:47 AM EST 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 ??Very mild disc disease at L5-S1. POS - [id number] -------- FINAL REPORT -------- Dictated By: Ale Manuel Dictated Date: 11/11/2024 10:41 ET Assigned Physician: Ale Manuel Reviewed and Electronically Signed By: Ale Manuel Signed Date: 11/11/2024 10:47 ET Workstation ID: [id number] Transcribed By: Self Edit Transcribed Date: 11/11/2024 10:41 ET Narrative 11/11/2024 10:47 AM EST EXAM: Lumbar spine x-ray HISTORY: Low back pain with right sciatica. COMPARISON: 06/27/2023, CT pelvis 01/23/2017, CT abdomen and pelvis 07/07/2024 FINDINGS: 4 views of the lumbar spine were performed. 5 lumbar type vertebral bodies. Vertebral body heights are maintained. ??Very mild disc space narrowing at L5-S1. ??Chronic bilateral spondylolysis at L5 with stable minimal anterolisthesis of L5 on S1. ??Moderate to large stool volume in the colon. Procedure Note Ale Manuel MD - 11/11/2024 EXAM: Lumbar spine x-ray HISTORY: Low back pain with right sciatica. COMPARISON: 06/27/2023, CT pelvis 01/23/2017, CT abdomen and [id number]/2024 FINDINGS: 4 views of the lumbar spine were performed. 5 lumbar type vertebral bodies. Vertebral body heights are maintained.Very mild disc space narrowing at L5-S1. Chronic bilateral spondylolysisat L5 with stable minimal anterolisthesis of L5 on S1. Moderate to largestool volume in the colon. IMPRESSION: Chronic bilateral spondylolysis at L5 with minimal spondylolisthesis atL5-S1. Very mild disc disease at L5-S1. POS - [id number] -------- FINAL REPORT -------- Dictated By: Ale Manuel Dictated Date: 11/11/2024 10:41 ET Assigned Physician: Ale Manuel Reviewed and Electronically Signed By: Ale Manuel Signed Date: 11/11/2024 10:47 ET Workstation ID: [id number] Transcribed By: Self Edit Transcribed Date: 11/11/2024 10:41 ET Cj YUSUF IMG XR PROCEDURE S * ECG 12 lead (10/06/2024 2:13 PM EST) Narrative Cj Esquivel PA - 10/06/2024 2:[address]-T changes. ??Similar to previous with some slight increase in the QT interval. ??No obvious QT prolongation. ??Reviewed case with patient's PCP/MD. ??PCP recommended official cardiology read. Cj YUSUF ECG ORDERABLES from Last 3 Months Care Teams Slicing Machine Operator/Tender Relationship Specialty Start Date End Date Beni Herndon MD [address] [place] [id number] PCP - General Internal Medicine 12/23/16
--- OUTSIDE RECORDS SUMMARY | 2024-12-08 14:28 | XMS_ITS | Encounter Summary ---
Author Organization [facility] Address [address] [place] [address] Care Team Providers Care Clinical Social Worker Name Role Phone Beni Herndon MD Primary Care Provider [phone] Encounter Details Date Type Department Care Team (Latest Contact Info) Description 11/11/2024 8:55 AM EST - 11/11/2024 11:59 PM [facility] Hospital Encounter XRAY - [place] [address] [place] [phone] Acute right-sided low back pain with right-sided sciatica Discharge Disposition: Home or Self Care Social History Tobacco Use Types Packs/Day Years Used Date Smoking Tobacco: Every Day Cigarettes Smokeless Tobacco: Never Alcohol Use Standard Drinks/Week Comments Not Currently [...] Record ed Within the last 3 months, ho w many times did you visit the emergency [...] care for your loved ones. For example, early childhood teacher or elderly care for an older adult? [...] file Not on file Not on file documented as of this encounter Medications at Time of Discharge Medication Sig Dispensed Refills Start Date End Date methadone (DOLOPHINE) 10 mg/mL concentrated solution Take by mouth. Takes 151 mg daily omeprazole (PriLOSEC) [address] capsule Take 1 capsule (20 mg total) by mouth 1 (one) time each day. 90 each 1 10/20/2024 10/15/2025 amoxicillin-clavulanate (AUGMENTIN) 875-125 mg per tablet Take 1 tablet by mouth 2 (two) times a day. 14 each 10/20/2024 11/29/2024 clotrimazole (LOTRIMIN) 1 % cream Apply topically 2 (two) times a day. Affected area in groin 30 g 1 10/20/2024 11/29/2024 diclofenac (VOLTAREN) 50 mg EC tablet Take 1 tablet (50 mg total) by mouth 2 (two) times a day. Do not crush, chew, or split. 28 tablet 11/11/2024 11/29/2024 levothyroxine (SYNTHROID, LEVOTHROID) 75 mcg tablet Take 1 tablet (75 mcg total) by mouth 1 (one) time each day. 08/11/2024 12/01/2024 loperamide (IMODIUM A-D) 2 mg tablet Take 1 tablet (2 mg total) by mouth. 07/05/2024 11/29/2024 documented as of this encounter Discharge Disposition Disposition Code Departure Means Destination Home or Self Care documented in this encounter Plan of Treatment Upcoming Encounters Date Type Department Care Team (Late st Contact Info) Description 12/13/2024 9:30 AM EST Treatment Outpatient [address] [phone] Miguelangel Padilla, REFRACTORY TECHNICIAN 12/17/2024 8:30 AM EST Treatment Outpatient Rehabilitation [address] [phone] Miguelangel Padilla, REFRACTORY TECHNICIAN 01/03/2025 9:15 AM EST Office Visit Adult Medicine [address] [phone] Cj Esquivel PA [address] [place] [address] documented as of this encounter Procedures Procedure Name Priority Date/Time Associated Diagnosis Comments XR LUMBAR SPINE 4+ VIEWS Routine 11/11/2024 9:08 AM EST Acute right-sided low back pain with right-sided sciatica documented in this encounter Results * XR Lumbar Spine 4+ Views (11/11/2024 9:08 AM EST) Anatomical Region Laterality Modality Spine, L-spine Radiographic Rose ging 11/11/2024 10:4 1 AM EST Impressions 11/11/2024 10:47 AM EST 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 ??Very mild disc disease at L5-S1. POS - [id number] -------- FINAL REPORT -------- Dictated By: Ale Manuel Dictated Date: 11/11/2024 10:41 ET Assigned Physician: Ale Manuel Reviewed and Electronically Signed By: Ale Manuel Signed Date: 11/11/2024 10:47 ET Workstation ID: [id number] Transcribed By: Self Edit Transcribed Date: 11/11/2024 [...] volume in the colon. Procedure Note Ale Manule MD - 11/11/2024 EXAM: Lumbar spine x-ray HISTORY: Low back pain with right sciatica. COMPARISON: 06/27/2023, CT pelvis 01/23/2017, CT abdomen and [id number]/2024 FINDINGS: 4 views of the lumbar spine were performed. 5 lumbar type vertebral bodies. Vertebral body heights are maintained.Very mild disc space narrowing at L5-S1. Chronic bilateral spondylolysisat L5 with stable minimal anterolisthesis of L5 on S1. Moderate to largestool volume in the colon. IMPRESSION: Chronic bilateral spondylolysis at L5 with minimal spondylolisthesis atL5-S1. Very mild disc disease at L5-S1. POS - [id number] -------- FINAL REPORT -------- Dictated By: Ale Manuel Dictated Date: 11/11/2024 10:41 ET Assigned Physician: Ale Manuel Reviewed and Electronically Signed By: Ale Manuel Signed Date: 11/11/2024 10:47 ET Workstation ID: [id number] Transcribed By: Self Edit Transcribed Date: 11/11/2024 10:41 ET Cj YUSUF IMG XR PROCEDURE S documented in this encounter Visit Diagnoses Diagnosis Acute right-sided low back pain with right-sided sciatica documented in this encounter Additional Health Concerns Assessment Noted Time PHQ-9 Depression Total Score: 0 10/06/20 24 10:32 AM EST documented as of this encounter Care Teams Clinical Social Worker Relationship Specialty Start Date End Date Beni Herndon MD [address] [place] [address] PCP - General Internal Medicine 12/23/16 documented as of this encounter
--- OUTSIDE RECORDS SUMMARY | 2024-12-08 14:28 | XMS_ITS | Encounter Summary ---
Author Organization [facility] Address [address] [place] [address] Care Team Providers Care Airflight Attendants Supervisor Name Role Phone Beni Herndon MD Primary Care Provider [phone] Reason for Visit * Consultation (Routine) - Authorized Specialty Diagnoses / Procedures Referred By Shonda moreno Referred To Contact Physical Therapy Diagnoses Acute low back pain with sciatica, sciatica laterality unspecified, unspecified back pain laterality Cj Esquivel PA [address] [place] [address] Referral ID Status Reason Start Date Expiration Date Visits Requested Visits Authorized [id number] Authorized Consult and Treat 11/22/2024 11/22/2025 20 20 Encounter Details Date Type Department Care Team (Latest Contact Info) Description 12/02/2024 1:00 PM EST Evaluation Outpatient Rehabilitation - [address] [phone] Neto Diaz, PT Acute low back pain with sciatica, sciatica laterality unspecified, unspecified back pain laterality (Primary Dx) Social History Tobacco Use Types Packs/Day Years [...] for your loved ones. For example, child care centre manager or elderly care for an older adult? [...] on file documented as of this encounter Progress Notes * Neto Diaz, PT - 12/02/2024 1:00 PM EST Images from the original note were not included. [facility] - Outpatient PHYSICAL THERAPY EVALUATION Date: 12/02/2024 Visit Number: 1 Patient Name: Jerrell De Los Santos : 1985 Age: 39 y.o. Gender: male Diagnosis: ICD-10-CM ICD-9-CM 1. Acute low back pain with sciatica, sciatica laterality unspecified, unspecified back pain laterality M54.40 724.2 Ambulatory referral to Physical Therapy and Athletic Training 724.3 Date of Onset/Surgery: 11/07/2024 Referring Provider: Cj Esquivel, * Insurance: Payor: [employer] PLAN / Plan: [employer]ICA[employer] / Product Type: *No Product type* / Patient identified by: Neto Diaz PT Language: Speaks and understands Maltese as preferred language with no consulting project director required Chart Reviewed: Yes Medications: Current Outpatient Medications on File Prior to Visit Medication Sig Dispense Refill diclofenac (VOLTAREN) 50 mg EC tablet Take 1 tablet (50 mg total) by mouth 2 (two) times a day. Do not crush, chew, or split. 60 each 0 gabapentin (NEURONTIN) 100 mg capsule Take 1 capsule (100 mg total) by mouth 3 (three) times a day.90 each 0 levothyroxine (SYNTHROID, LEVOTHROID) 88 mcg tablet Take 1 tablet (88 mcg total) by mouth 1 (one) time each day. 90 each 3 methadone (DOLOPHINE) 10 mg/mL concentrated solution Take by mouth. Takes 151 mg daily methylPREDNISolone (MEDROL) 4 mg tablet Take 6 tabs PO on day 1, 5 tabs PO on day 2, 4 tabs PO on day 3, 3 tabs PO on day 2, 2 tabs PO on day 5 and 1 tab PO on day 6. 21 tablet 0 omeprazole (PriLOSEC) [address] capsule Take 1 capsule (20 mg total) by mouth 1 (one) time each day.90 each 1 [DISCONTINUED] amoxicillin-clavulanate (AUGMENTIN) 875-125 mg per tablet Take 1 tablet by mouth 2 (two) times a day. (Patient not taking: Reported on 11/11/2024) 14 each 0 [DISCONTINUED] clotrimazole (LOTRIMIN) 1 % cream Apply topically 2 (two) times a day. Affected areain groin (Patient not taking: Reported on 11/11/2024) 30 g 1 [DISCONTINUED] diclofenac (VOLTAREN) 50 mg EC tablet Take 1 tablet (50 mg total) by mouth 2 (two) times a day. Do not crush, chew, or split. 28 tablet 0 [DISCONTINUED] levothyroxine (SYNTHROID, LEVOTHROID) 75 mcg tablet Take 1 tablet (75 mcg total) by mouth 1 (one) time each day. [DISCONTINUED] loperamide (IMODIUM A-D) 2 mg tablet Take 1 tablet (2 mg total) by mouth. (Patient not taking: Reported on 11/11/2024) No current facility-administered medications on file prior to visit. Advised Patient to contact MD with any questions regarding medications and importance of managing medication information. has a past medical history of Cholelithiasis (07/07/2024), Foot drop, Hypothyroid, Opiate dependence([facility]), and Overweight. has no past surgical history on file. is allergic to other and prednisone. Precautions: N/A Previous Medical Care/Therapy: 5 lumbar type vertebral bodies. Vertebral body heights are maintained. Very mild disc space narrowing at L5-S1. Chronic bilateral spondylolysis at L5 with stable minimal anterolisthesis of L5 on S1. Moderate to large stool volume in the colon. IMPRESSION: 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 Very mild disc disease at L5-S1. 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 Pt lifted and rotated left and tried to put tower down quickly and had immediate R LBP into R upper buttocks. Tried to heal at home but 4 days later came into PCP's office. Pt had x-rays and given Prednisone w/ NSAID w/ good relief for 3 days. Pain returned w/ severity when meds wore off/ran out so pt went to ED. CT Scan at ED. Pt had another couple days of relief and was discharged home w/ 5 day supply of meds. Pt had no meds x 2 days and reports his pain was bad and then saw PCP again. Pt was given gabapentin and another round of steroids. Currently not having back pain but has cramping pain into R calf muscle. Feels current meds are helping his sx's. Pt reports he had the same pain 22 years ago when playing foot ball. Home Environment: Resides in 2nd floor apartment. W/D are in apartment. 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 R hand dominant. Prior Level of Function: No back issues for the last 1.5 years or limitations d/t back pain. 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 Is the patient at Risk for Falls: No Pain: Pain location(s) Rates R LBP=1/10 on VAS. Increases to 7/10 first thing in the morning. OBJECTIVE General Observations/Posture/Comments: Repeated flexion decreases R leg pain/cramp. FHP and rounded shoulders, stands in slight forward trunk flexion. R crest up, R PSIS up. General/Functional Assessments/Extremity Assessments: Spine ROM Active Passive Lumbar flexion (0-60) WNL Lumbar extension (0-35) 20 w/ increased R LE cramping pain. Lumbar side bending R (0-25) WNL Lumbar side bending L (0-25) WNL Lumbar Rotation R (0-20) End range cramping in R upper buttock Lumbar Rotation L (0-20) WNL Decreased light touch at R 5th metatarsal area. DTR's: B KJ's=2+, B AJ's=0 Poor transfer technique for sup<->sit transfer and LBP when not log rolling. Pt has sharp pain when bridging during transfers (R LB->R buttock-> distal and lateral R thigh) Palpation: R anterior innominate noted. Special Tests: SLR= (-) B. Slump (-) B, lx distraction no change. HEP initiated Lx spine traction w/ chair, Wig Wag (for disk dehydration in AM), repeated lx flexionin sitting, supine piriformis stretch and log rolling/transfer technique. Written instructions issued. Pt encouraged to get his bed out of storage sooner rather than later as he is currently sleeping onhis couch. ASSESSMENT: IE completed this visit. Pt was able to return demonstration of HEP after instruction. Would benefit from review of transfers and log rolling. Rehabilitation Potential: Rehab Potential: Condition Has Potential to Improve Jerrell De Los Santos is a 39 y.o. male presenting for outpatient physical therapy evaluation with complaints of R LB, buttock and lateral distal R thigh pain and cramping. Repeated flexion centralizes pt's pain. Pt has lx ROM deficits, core strength deficits, poor transfer technique and no HEP at this time. Patients deficits have resulted in functional deficits as noted above for work and household IADL's. Skilled Physical therapy is medically necessary to reach PT goals, improve ROM, strength, function and pain levels Learning Needs: Were Patient Learning needs assessed: Yes Learning Preferences: Explanation and Demonstration Barriers to Learning: No Barriers to Learning Patient Education: [x] Discussed, with patient and/or caregiver, the recommended plan of care/goals, the importance oftherapy and appointment compliance in order to achieve goals in a timely manner. GOALS Goals Addressed This Visit's Progress LTG's 12 visits (pt-stated) Pt will be Independent and compliant with final HEP. Pt will I demonstrate proper technique for sup<->sit transfers in 5/5 trials. Pt will report R LBP that does not extend when sitting to use computer. Pt will report LBP of no more than 2/10 on VAS first thing in the morning. STG's 6 visits (pt-stated) Pt is Independent and compliant with initial HEP. Pt will perform correct technique for sup<->sit transfers w/ min VC's in 5/5 trials. Pt will report R LBP that does not extend beyond R buttock when sitting to use computer. Pt will report LBP of no more than 4/10 on VAS first thing in the morning. PLAN POC Development/Review: Initial Evaluation; Participants: Patient Skilled Therapy Plan Required: YES- Reasons for Rehab and Medical Necessity -- Reduce Need for Assist with Functional Activity/ADL's/Mobility and Return to Work Planned Therapy Interventions: Cold Pack, E-Stim -- Unattended, Hot Pack, Kinesiotaping, Manual Therapy, Mechanical Traction, Neuromuscular Re-education, Patient / Family Education, Therapeutic Activity, Therapeutic Exercise, and Ultrasound Skilled PT recommended at a freq of 2x/week for 12 visits. Recommended Consults: none Equipment Recommended: none; Equipment Provided: none BILLING TOTAL TREATMENT TIME: 60 Minutes Evaluation High Complexity Justification ::: A history of present problem with 3 or more personal factors and/or co-morbidities that impact the plan of care, An examination of body systems using standardized tests and measures addressing a total of 4 or more elements from any of the following: bodystructures and functions, activity limitations, and/or participation restrictions, and High time effort (typically 45 minutes) spent [id number] with the patient and/or family Documentation completed by Neto Diaz PT [address] Dept: [phone] Dept PATIENT NAME: Jerrell De Los Santos : 1985 Certification: This is to certify that the above named patient, who is under my care, requires skilled Therapy services as described in the above treatment plan. I further certify that the services outlined in this plan are skilled and medically necessary. I have reviewed this plan for rehabilitation services, and I recommend that these services continue to meet the above stated goals and plan. SIGNATURE: DATE Cj Esquivel, * Referring provider documented in this encounter Plan of Treatment Upcoming Encounters Date Type Department Care Team (Late st Contact Info) Description 12/13/2024 9:30 AM EST Treatment Outpatient [address] [phone] Miguelangel Padilla, GORE SEAMER 12/17/2024 8:30 AM EST Treatment Outpatient [address] [phone] Miguelangel Padilla, GORE SEAMER 01/03/2025 9:15 AM EST Office Visit Adult Medicine [facility] [address] [place] [address] Cj Esquivel PA [address] [place], [place] documented as of this encounter Goals Goal Patient Goal Type Associated Problems Recent Progress Patient-Stated? Author STG's 6 visits General Yes Neto Diaz PT Note: Pt is Independent and compliant with initial HEP. Pt will perform correct technique for sup<->sit transfers w/ min VC's in 5/5 trials. Pt will report R LBP that does not extend beyond R buttock when sitting to use computer. Pt will report LBP of no more than 4/10 on VAS first thing in the morning. LTG's 12 visits General Yes Neto Diaz PT Note: Pt will be Independent and compliant with final HEP. Pt will I demonstrate proper technique for sup<->sit transfers in 5/5 trials. Pt will report R LBP that does not extend when sitting to use computer. Pt will report LBP of no more than 2/10 on VAS first thing in the morning. documented as of this encounter Visit Diagnoses Diagnosis Acute low back pain with sciatica, sciatica laterality unspecified, unspecified back pain laterality- Primary documented in this encounter Orders Outpatient Referral Count Last Ordered Date Fir st Ordered Date AMB REFERRAL TO PHYSICAL [facility] 1 12/02/2024 documented in this encounter Additional Health Concerns Assessment Noted Time PHQ-9 Depression Total Score: 0 11/28/19 25 4:21 PM EST documented as of this encounter Care Teams Airflight Attendants Supervisor Relationship Specialty Start Date End Date Beni Herndon MD [address] [place], [place] PCP - General Internal Medicine 12/23/16 documented as of this encounter
--- OUTSIDE RECORDS SUMMARY | 2024-12-08 14:28 | XMS_ITS | Encounter Summary ---
Author Organization [facility] Address [address] [place] [address] Care Team Providers Care Tub Operator Name Role Phone Beni Herndon MD Primary Care Provider [phone] Reason for Referral * Consultation (Routine) - Authorized Specialty Diagnoses / Procedures Referred By Contac t Referred To Contact Diagnoses Sleep apnea, unspecified type Cj Esquivel PA [address] [place] [phone] Hermilo Minor MD [address] [address] Referral ID Status Reason Start Date Expiration Date Visits Requested Visits Authorized [id number] Authorized Specialty Services Required 11/11/2024 11/11/2025 1 1 * Consultation (Routine) - Pending Review Specialty Diagnoses / Procedures Referred By Contac t Referred To Contact Dermatology Diagnoses Genital warts Cj Esquivel PA [address] [place] [address] Referral ID Status Reason Start Date Expiration Date Visits Requested Visits Authorized [id number] Pending Review Specialty Services Required 11/11/2024 11/11/2025 1 1 Reason for Visit * Reason Comments Annual Exam Back Pain Low back pain second floyd to twisting injury while lifting heavy object on 11/08/24 Encounter Details Date Type Department Care Team (Late st Contact Info) Description 11/11/2024 8:30 AM EST Office Visit Adult Medicine [facility] [address] [place] [address] Cj Esquivel PA [address] [place] [address] Routine general medical examination at a health care facility (Primary Dx); Genital warts; Sleep apnea, unspecified type; Acute right-sided low back pain with right-sided sciatica Social History Tobacco Use Types Packs/Day Years [...] your loved ones. For example, child care giver or elderly care for an older adult? [...] on file documented as of this encounter Last Filed Vital Signs Vital Sign Reading Time Taken Comments Blood Pressure 118/74 11/11/2024 8:20 AM EST Pulse 94 11/11/2024 8:20 AM EST Temperature 36.6 ??C (97.8 ??F) 11/11/2024 8:20 AM ES T Respiratory Rate 16 11/11/2024 8:20 AM EST Oxygen Saturation 97% 11/11/2024 8:20 AM EST Inhaled Oxygen Concentration - - Weight 148 kg (325 lb 9.6 oz) 11/11/2024 8:20 AM EST Height 185.4 cm (6' 1 ) 11/11/2024 8:20 AM EST Body Mass Index 42.96 11/11/2024 8:20 AM EST documented in this encounter Patient Instructions * Attachments The following attachments cannot be sent through Care Everywhere. * Lumbar Pain: Acute: Exercises (Tamazight) * Back Pain: Strengthening Your Core: Video (Tamazight) documented in this encounter Ordered Prescriptions Prescription Sig Dispensed Refills Start Date End Da te diclofenac (VOLTAREN) 50 mg EC tablet Take 1 tablet (50 mg total) by mouth 2 (two) times a day. Do not crush, chew, or split. 28 tablet 11/11/2024 11/29/2024 documented in this encounter Progress Notes * PARAMJIT Vegas - 11/11/2024 8:30 AM EST Images from the original note were not included. Physical Examination Jerrell De Los Santos is a 39 y.o. male presenting for Annual Exam and Back Pain (Low back pain secondary to twisting injury while lifting heavy object on 11/08/24) Subjective History Of Present Illness: 39 y/o M here for physical exam. He also complains of back pain after he injured it when removing his computer, he was leaned over and twisted to move it when he felt the pain develop in his right lower back. He has some pain radiating into his right lower extremity down to his calf. Otherwise he feels well has no specific complaints or concerns. He has a Mallampati III bordering on IV on exam. He tells me he has a history of sleep apnea but could not tolerate the CPAP mask. He does admit to snoring. I will place referral for the patient to be seen by sleep medicine. He is due for a Tdap and agreeable to receive this today. Back Pain Pertinent negatives include no abdominal pain, chest pain, fever or weakness. 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 levothyroxine (SYNTHROID, LEVOTHROID) 75 mcg tablet 1 tablet, oral, Daily loperamide (IMODIUM A-D) 2 mg methadone (DOLOPHINE) 10 mg/mL concentrated solution oral, Takes 151 mg daily omeprazole (PRILOSEC) 20 mg, oral, Daily Past Medical History: Diagnosis Date Cholelithiasis 07/07/2024 DX:Cholelithiasis; COMMENT: Patient was having generalized abdominal discomfort, most consistent with viral illness. Labs that showed elevated white count so CT was obtained. The CT did show some evidence of gallstones without any wall thickening. There is no evidence of cholecystitis. Foot drop DX:Foot drop Hypothyroid DX:Hypothyroid Opiate dependence (CMS/HCC) DX:Opiate dependence (HCC) Overweight DX:Overweight History reviewed. No pertinent surgical history. Social History Socioeconomic History Marital status: Single Spouse name: None Number of children: None Years of education: None Highest education level: None Occupational History None Tobacco Use Smoking status: Every Day Current packs/day: 0.50 Types: Cigarettes Smokeless tobacco: Never Substance and Sexual Activity Alcohol use: Not Currently Drug use: Not Currently Sexual activity: None Other Topics Concern None Social History Narrative None Family History Problem Relation Name Age of Onset Thyroid disease Mother Colon cancer Maternal Grandfather 88.00 Breast cancer Neg Hx Immunization History Administered Date(s) Administered Moderna SARS-CoV-2 COVID-19, mRNA, LNP-S, preservative free 04/18/2022 Pfizer SARS-CoV-2 COVID-19, mRNA, LNP-S, preservative free 03/02/2021, 03/24/2021 Health Maintenance Topic Date Due Pneumococcal Vaccine: Pediatrics (0 to 5 Years) and At-Risk Patients (6 to 64 Years) (1 of 2 - PCV)Never done DTaP,Tdap,and Td Vaccines (1 - Tdap) Never done Hepatitis B Vaccines (1 of 3 - 19+ 3-dose series) Never done Cholesterol Screening (Lipid Panel) Never done HIV Screening Never done Hepatitis C Screening Never done Influenza Vaccine (1) Never done COVID-19 Vaccine (2023- season) 2024 Depression Screening 10/06/2025 Social Influencers of Health Screening 10/06/2025 HIB Vaccines Aged Out IPV Vaccines Aged Out Hepatitis A Vaccines Aged Out MMR Vaccines Aged Out Varicella Vaccines Aged Out Meningococcal ACWY Vaccine Aged Out HPV Vaccines Aged Out RSV Immunization Patients Under 20 months Aged Out Depression Screening (PHQ2/9): Anxiety Screening: Social Influencer of Health (SIOH): Review of Systems: Review of Systems Constitutional: Negative for chills, diaphoresis, fever and unexpected weight change. HENT: Negative for ear discharge, ear pain, nosebleeds and sore throat. Eyes: Negative for discharge and redness. Respiratory: Negative for cough and shortness of breath. Cardiovascular: Negative for chest pain, palpitations and leg swelling. Gastrointestinal: Negative for abdominal pain and blood in stool. Endocrine: Negative for polyuria. Genitourinary: Negative for decreased urine volume, difficulty urinating, hematuria, penile discharge, scrotal swelling and urgency. Musculoskeletal: Positive for back pain. Negative for gait problem. Skin: Negative for rash. Neurological: Negative for dizziness, syncope and weakness. Psychiatric/Behavioral: Negative for confusion. Objective BP 118/74 Pulse 94 Temp 36.6 ??C (97.8 ??F) (Temporal) Resp 16 Ht 1.854 m (73 ) Wt 148 kg(325 lb 9.6 oz) BMI 42.96 kg/m?? SpO2: 97 % Physical Exam Constitutional: General: He is not in acute distress. Appearance: Normal appearance. He is not ill-appearing. HENT: Head: Normocephalic and atraumatic. Right Ear: Tympanic membrane and ear canal normal. Left Ear: Tympanic membrane and ear canal normal. Nose: Nose normal. No rhinorrhea. Mouth/Throat: Mouth: Mucous membranes are moist. Pharynx: Oropharynx is clear. No oropharyngeal exudate or posterior oropharyngeal erythema. Eyes: General: Right eye: No discharge. Left eye: No discharge. Conjunctiva/sclera: Conjunctivae normal. Pupils: Pupils are equal, round, and reactive to light. Cardiovascular: Rate and Rhythm: Normal rate and regular rhythm. Heart sounds: No murmur heard. Pulmonary: Effort: Pulmonary effort is normal. Breath sounds: Normal breath sounds. No wheezing, rhonchi or rales. Abdominal: General: Bowel sounds are normal. There is no distension. Palpations: Abdomen is soft. There is no mass. Tenderness: There is no abdominal tenderness. There is no guarding or rebound. Hernia: No hernia is present. Musculoskeletal: General: Normal range of motion. Cervical back: Normal range of motion and neck supple. Right lower leg: No edema. Left lower leg: No edema. Skin: General: Skin is warm and dry. Capillary Refill: Capillary refill takes less than 2 seconds. Coloration: Skin is not jaundiced. Findings: No bruising, erythema or rash. Neurological: General: No focal deficit present. Mental Status: He is alert and oriented to person, place, and time. Mental status is at baseline. Motor: No weakness. Gait: Gait normal. Deep Tendon Reflexes: Reflexes normal. Psychiatric: Mood and Affect: Mood normal. Behavior: Behavior normal. Thought Content: Thought content normal. Judgment: Judgment normal. Assessment/Plan Patient completed physical examination today. Health Care Maintenance and Immunizations reviewed. Assessment & Plan Routine general medical examination at a health care facility Tdap updated. Otherwise patient up-to-date with routine screening and vaccinations Orders: Complete blood count; Future Comprehensive metabolic panel; Future Thyroid stimulating hormone; Future Lipid panel with reflex to direct LDL; Future Genital warts Referral to dermatology placed. Orders: Ambulatory referral to Dermatology; Future Sleep apnea, unspecified type Referral to sleep medicine placed. Orders: Ambulatory referral to Sleep Medicine; Future Acute right-sided low back pain with right-sided sciatica No red flag symptoms in regards to his back pain. Strength testing normal. Reflexes normal. No bowel or bladder incontinence. Likely musculoskeletal in nature. I suspect this should improve on its own over the next 2 to 3 weeks. Will prescribe Voltaren. Recommendation of stretches was provided. Will get x- ray of lumbar spine. Follow-up in 4 to 6 weeks if not improving. Orders: XR Lumbar Spine 2-3 Views; Future Discussed the patient's BMI with him. The BMI is above average. The patient received dietary education and exercise education because they have an above normal BMI. Patient was counseled on the following: Eat healthy foods. Choose fruits, vegetables, whole grains,lean protein, and low-fat dairy foods. Limit saturated fat and reduce salt. Exercise. Get at least 30 minutes of exercise on most days of the week. Walking can be a good choice. Reach and stay at your healthy weight. This will lower your risk for many health problems. Take care of your mental health. Try to stay connected with friends, family, and community, and find ways to manage stress. Avoid tobacco and nicotine: Don't smoke, vape, or chew. If you need help quitting, please do not be afraidto reach out. [place] your teeth twice a day and follow routinely with the dentist. Safety Issues- Always wear a seat belt and a helmet when in a bike or motorcycle. Apply Sunscreen daily to your face and body if appropriate. Aim to get at least 7 hours of sleep to maintain good health and well-being. PARAMJIT Vegas AD[facility] [address] Dept: [phone] Dept Date of Service: 11/11/2024 documented in this encounter Plan of Treatment Upcoming Encounters Date Type Department Care Team (Late st Contact Info) Description 12/13/2024 9:30 AM EST Treatment Outpatient [address] [phone] Miguelangel Padilla, RECYCLING SORTER 12/17/2024 8:30 AM EST Treatment Outpatient [address] [phone] Miguelangel Padilla, RECYCLING SORTER 01/03/2025 9:15 AM EST Office Visit [address] [phone] Cj Esquivel PA [address] [place] [address] Scheduled Referrals Name Type Priority Associated Diagnoses Order Schedule Ambulatory referral to Dermatology Outpatient Referral Routine Genital warts 1 Occurrences starting 11/11/2024 until 11/11/2025 Ambulatory referral to Sleep Medicine Outpatient Referral Routine Sleep apnea, unspecified type 1 Occurrences starting 11/11/2024 until 11/11/2025 documented as of this encounter Results * (ABNORMAL) Lipid panel with reflex to direct LDL (11/29/2024 11:28 AM EST) [facility] Cholesterol 217(H) 0 - 200 mg/dL LAB CHEMISTRY METHOD 11/29/2024 3:43 PM EST [facility] Triglycerides 314(H) 0 - 150 mg/dL LAB CHEMISTRY METHOD 11/29/2024 3:43 PM EST [facility] HDL 41 >=40 mg/dL LAB CHEMISTRY METHOD 11/29/2024 3:43 PM [facility] LDL Calculated 113(H) 0 - 100 mg/dL LAB CHEMISTRY METHOD 11/29/2024 3:43 PM [facility] VLDL Cholesterol Cezar 62.8 mg/dL LAB CHEMISTRY METHOD 11/29/2024 3:43 PM [facility] Non HDL Chol. (LDL+VLDL) 176(H) <145 mg/dL LAB CHEMISTRY METHOD 11/29/2024 3:43 PM [facility] Chol/HDL Ratio 5.3(H) 0.0 - 4.4 LAB CHEMISTRY METHOD 11/29/2024 3:43 PM [facility] Blood Venous blood specimen / Unknown Venipuncture / Unknown 11/29/2024 11:28 AM EST 11/29/2024 11:28 AM EST Cj YUSUF LAB BLOOD ORDERA BLES Performing Organization Address City/[facility]/ZIP Co de Phone Number [facility] [address] [place] [address], [place] [phone] * (ABNORMAL) Thyroid stimulating hormone (11/29/2024 11:28 AM EST) TSH 4.59(H) 0.40 - 4.00 mcIU/mL LAB CHEMISTRY METHOD 11/29/2024 3:48 PM [facility] Blood Venous blood specimen / Unknown Venipuncture / Unknown 11/29/2024 11:28 AM EST 11/29/2024 11:28 AM EST Cj YUSUF LAB BLOOD ORDERA BLES [facility] [address] [place] [address], [place] [phone] * (ABNORMAL) Comprehensive metabolic panel (11/29/2024 11:28 AM EST) Sodium 135 133 - 145 mmol/L LAB CHEMISTRY METHOD 11/29/2024 3:41 PM [facility] Potassium 3.9 3.5 - 5.5 mmol/L LAB CHEMISTRY METHOD 11/29/2024 3:41 PM [facility] Chloride 99 96 - 110 mmol/L LAB CHEMISTRY METHOD 11/29/2024 3:41 PM [facility] CO2 31 21 - 32 mmol/L LAB CHEMISTRY METHOD 11/29/2024 3:41 PM [facility] Anion Gap 5 3 - 11 LAB CHEMISTRY METHOD 11/29/2024 3:41 PM [facility] Glucose 115(H) 70 - 100 mg/dL LAB CHEMISTRY METHOD 11/29/2024 3:41 PM [facility] BUN 15 5 - 25 mg/dL LAB CHEMISTRY METHOD 11/29/2024 3:41 PM [facility] Creatinine 0.79 0.70 - 1.30 mg/dL LAB CHEMISTRY METHOD 11/29/2024 3:41 PM [facility] eGFR 115 >=60 mL/min/1. 73m2 LAB CHEMISTRY METHOD 11/29/2024 3:41 PM [facility] Comment:Calculation based on the??Chronic Kidney Disease Epidemiology Collaboration (CKD-EPI) equation refit??without adjustment for race. BUN/Creatinine Ratio 19.0 LAB CHEMISTRY METHOD 11/29/2024 3:41 PM [facility] Calcium 9.4 8.5 - 10.5 mg/dL LAB CHEMISTRY METHOD 11/29/2024 3:41 PM [facility] AST (SGOT) 27 10 - 42 unit/L LAB CHEMISTRY METHOD 11/29/2024 3:41 PM [facility] ALT (SGPT) 43 10 - 60 unit/L LAB CHEMISTRY METHOD 11/29/2024 3:41 PM [facility] Alkaline Phosphatase 82 42 - 121 unit/L LAB CHEMISTRY METHOD 11/29/2024 3:41 PM [facility] Total Protein 8.5(H) 6.0 - 8.0 g/dL LAB CHEMISTRY METHOD 11/29/2024 3:41 PM [facility] Albumin 3.9 3.2 - 5.0 g/dL LAB CHEMISTRY METHOD 11/29/2024 3:41 PM [facility] Total Bilirubin 0.5 0.0 - 1.4 mg/dL LAB CHEMISTRY METHOD 11/29/2024 3:41 PM [facility] Blood Venous blood specimen / Unknown Venipuncture / Unknown 11/29/2024 11:28 AM EST 11/29/2024 11:28 AM EST Cj YUSUF LAB BLOOD ORDERA BLES [facility] [address] [place] [address], * (ABNORMAL) Complete blood count (11/29/2024 11:28 AM EST) WBC 16.1(H) 4.8 - 10.8 K/mcL LAB HEMETOLOGY METHOD 11/29/2024 2:23 PM [facility] RBC 4.60 4.50 - 5.50 M/mcL LAB HEMETOLOGY METHOD 11/29/2024 2:23 PM [facility] Hemoglobin 14.0 13.5 - 17.5 g/dL LAB HEMETOLOGY METHOD 11/29/2024 2:23 PM [facility] Hematocrit 43.5 42.0 - 54.0 % LAB HEMETOLOGY METHOD 11/29/2024 2:23 PM [facility] MCV 93.8 79.0 - 98.0 FL LAB HEMETOLOGY METHOD 11/29/2024 2:23 PM [facility] MCH 30.2 27.0 - 32.0 pcg LAB HEMETOLOGY METHOD 11/29/2024 2:23 PM EST [facility] MCHC 32.2 32.0 - 37.0 g/dL LAB HEMETOLOGY METHOD 11/29/2024 2:23 PM [facility] RDW 13.2 11.0 - 15.0 % LAB HEMETOLOGY METHOD 11/29/2024 2:23 PM [facility] Platelets 293 130 - 400 K/mcL LAB HEMETOLOGY METHOD 11/29/2024 2:23 PM [facility] MPV 10.0 7.0 - 11.0 FL LAB HEMETOLOGY METHOD 11/29/2024 2:23 PM [facility] NRBC 0.0 <1.0 % LAB HEMETOLOGY METHOD 11/29/2024 2:23 PM [facility] NRBC Absolute 0.00 <0.10 K/mcL LAB HEMETOLOGY METHOD 11/29/2024 2:23 PM [facility] Blood Venous blood specimen / Unknown Venipuncture / Unknown 11/29/2024 11:28 AM EST 11/29/2024 11:28 AM EST Cj YUSUF LAB BLOOD ORDERA BLES [facility] [address] [place] [address], documented in this encounter Visit Diagnoses Diagnosis Routine general medical examination at a health care facility- Primary Genital warts Condyloma acuminatum Sleep apnea, unspecified type Acute right-sided low back pain with right-sided sciatica documented in this encounter Orders Immunization/Injection Count Last Ordered Date First Ordered Date TDAP TETANUS DIPTHERIA ACELL ULAR PERTUSSIS (BOOSTRIX; ADACEL) 7YO AND OLDER 1 11/11/2024 documented in this encounter Additional Health Concerns Assessment Noted Time PHQ-9 Depression Total Score: 0 10/06/20 24 10:32 AM EST documented as of this encounter Care Teams Tub Operator Relationship Specialty Start Date End Date Beni Herndon MD [address] [place] [phone] PCP - General Internal Medicine 12/23/16 documented as of this encounter
--- OUTSIDE RECORDS SUMMARY | 2024-12-08 14:29 | XMS_ITS | Encounter Summary ---
Author Organization [facility] Address [address] [place] [address] Care Team Providers Care Rug Receiving Clerk Name Role Phone Beni Herndon MD Primary Care Provider [phone] Reason for Visit * Consultation (Routine) - Authorized Specialty Diagnoses / Procedures Referred By Shonda moreno Referred To Contact Physical Therapy Diagnoses Acute low back pain with sciatica, sciatica laterality unspecified, unspecified back pain laterality Cj Esquivel PA [address] [place] [address] Referral ID Status Reason Start Date Expiration Date Visits Requested Visits Authorized [id number] Authorized Consult and Treat 11/22/2024 11/22/2025 20 20 Encounter Details Date Type Department Care Team (Late st Contact Info) Description 12/06/2024 8:30 AM EST Treatment Outpatient Rehabilitation - [address] [phone] Miguelangel Padilla, CHANGE CONTROL ANALYST Acute low back pain with sciatica, sciatica [...] your loved ones. For example, early childhood aide classroom or elderly care for an older adult? [...] as of this encounter Progress Notes * Miguelangel Padilla PTA - 12/06/2024 8:30 AM EST [facility] - Outpatient PHYSICAL THERAPY DAILY TREATMENT NOTE - OP Date: 12/06/2024 Visit Number: 2 Patient Name: Jerrell De Los Santos : 1985 Age: 39 y.o. Gender: male Diagnosis: ICD-10-CM ICD-9-CM 1. Acute low back pain with sciatica, sciatica laterality unspecified, unspecified back pain laterality M54.40 724.2 724.3 Date of Onset/Surgery: 11/07/2024 Referring Provider: Cj Esquivel, * Insurance: Payor: [employer] / Plan: [employer]ICAID / Product Type: *No Product type* / Patient Identified by: Miguelangel Paidlla PTA Language: [place] Medications: Current Outpatient Medications on File Prior [...] (one) time each day.90 each 1 [DISCONTINUED] levothyroxine (SYNTHROID, LEVOTHROID) 75 mcg tablet Take 1 tablet (75 mcg total) by mouth 1 (one) time each day. No current facility-administered medications on file prior to visit. Allergies: is allergic to other and prednisone. Precautions: Fall risk: No Patient/Caregiver Goals: SUBJECTIVE Subjective Report: Pt reports he woke up with increased pain down his right leg to his calf Chart Reviewed: Yes Pain (R) LE to calf 5/10 OBJECTIVE TREATMENT INTERVENTION: Nu step x 5 Hamstring and hip flexor stretch 3 x 20 sec hold (B) Seated Trunk flexion and diagonals x 5 with 10 sec hold LTR x 3 with 20 sec hold (B) Abd bracing x 20 with 5 sec hold Abd bracing with marching x 15 (B) post treatment ASSESSMENT/Response to Treatment fair . Some c/o discomfort throughout treatment today.. progress as able Patient Education: Education provided: Yes Education Provided To: Patient utilizing Explanation mode(s) of education Response to Education: Verbal Understanding PLAN POC Development/Review: No Change in the Plan of Care; Participants: Patient Total Treatment Time: 30 Modalities: Therapeutic procedures: Documentation completed by Miguelangel Padilla PTA documented in this encounter Plan of Treatment Upcoming Encounters Date Type Department Care Team (Late st Contact Info) Description 12/13/2024 9:30 AM EST Treatment Outpatient Rehabilitation [address] [phone] Miguelangel Padilla PTA 12/17/2024 8:30 AM EST Treatment Outpatient Rehabilitation - [address] [phone] Miguelangel Padilla PTA 01/03/2025 9:15 AM EST Office Visit Adult Medicine [address] [phone] Cj Esquivel PA [address] [place] [address] documented as of this encounter Goals Goal [...] pain laterality- Primary documented in this encounter Additional Health Concerns Assessment Noted Time PHQ-9 Depression Total Score: 0 11/28/19 25 4:21 PM EST documented as of this encounter Care Teams Rug Receiving Clerk Relationship Specialty Start Date End Date Beni Herndon MD [address] [place] [address] PCP - General Internal Medicine 12/23/16 documented as of this encounter
--- OUTSIDE RECORDS SUMMARY | 2024-12-08 14:29 | XMS_ITS | Encounter Summary ---
Author Organization [employer] Address [address] [place] [address] Care Team Providers Care Speech Pathology Supervisor Name Role Phone Beni Herndon MD Primary Care Provider [phone] Encounter Details Date Type Department Care Team (Late st Contact Info) Description 11/23/2024 Telephone Adult Medicine [facility] [place] [address] [place] [phone] Beni Herndon MD [address], [place] [phone] Social History Tobacco Use Types Packs/Day Years [...] your loved ones. For example, child care attendant school or elderly care for an older adult? [...] as of this encounter Progress Notes * Sharmaine Meyer RN - 11/23/2024 12:14 PM EST Pt was seen by yanet irizarry 11/11 for pe and did c/o back pain, went to the ed for pain on 11/20 a PT referral was done for this and pt is aware * Samantha Fernandes - 11/23/2024 11:21 AM EST [facility] CALL Which [facility] office is calling? [facility] Full name of caller: YANETH The caller is NURSE Is the caller at the patients home?: no Reason for call: PATIENT WAS SEEN ON 11/20/2024 FOR POSSIBLE PINCH NERVE IN [facility]. PATIENT NEEDS PHYSICAL THERAPY REFERRAL AND OT REFERRAL. Does caller need an urgent call back? no Was CONTACT Telephone # obtained above?: yes Fax #: [phone] - YANETH DIRECT LINE documented in this encounter Plan of Treatment Upcoming Encounters Date Type Department Care Team (Late st Contact Info) Description 12/13/2024 9:30 AM EST Treatment Outpatient Rehabilitation - [address] [phone] Miguelangel Padilla, BUILDING CONSULTANT 12/17/2024 8:30 AM EST Treatment Outpatient [facility] - [address] [phone] Miguelangel Padilla, BUILDING CONSULTANT 01/03/2025 9:15 AM EST Office Visit Adult Medicine [address] [phone] Cj Irizarry, PARAMJIT [address] [place] [address] documented as of this encounter Visit Diagnoses Not on filedocumented in this encounter Additional Health Concerns Assessment Noted Time PHQ-9 Depression Total Score: 0 10/06/20 10:32 AM EST documented as of this encounter Care Teams Speech Pathology Supervisor Relationship Specialty Start Date End Date Beni Herndon MD [address] [place] [address] PCP - General Internal Medicine 12/23/16 documented as of this encounter
--- OUTSIDE RECORDS SUMMARY | 2024-12-08 14:29 | XMS_ITS | Encounter Summary ---
Author Organization [employer] Address [address] [place] [address] Care Team Providers Care Commercial Roofer Name Role Phone Beni Herndon MD Primary Care Provider [phone] Encounter Details Date Type Department Care Team (Late st Contact Info) Description 11/23/2024 Telephone Adult Medicine [facility] [place] [address] [place] [phone] Beni Herndon MD [address], [place] [phone] Social History Tobacco Use Types Packs/Day Years [...] for your loved ones. For example, child development professor or elderly care for an older adult? [...] on file documented as of this encounter Plan of Treatment Upcoming Encounters Date Type Department Care Team (Late st Contact Info) Description 12/13/2024 9:30 AM EST Treatment Outpatient Rehabilitation - [address] [phone] Miguelangel Padilla, INSURANCE FOLLOW UP REPRESENTATIVE 12/17/2024 8:30 AM EST Treatment Outpatient Rehabilitation - [address] [phone] Miguelangel Padilla, INSURANCE FOLLOW UP REPRESENTATIVE 01/03/2025 9:15 AM EST Office Visit Adult Medicine [facility] [place] [address], [place] [phone] Cj Esquivel PA [address] [place], [place] documented as of this encounter Visit Diagnoses Not on filedocumented in this encounter Additional Health Concerns Assessment Noted Time PHQ-9 Depression Total Score: 0 10/06/20 10:32 AM EST documented as of this encounter Care Teams Commercial Roofer Relationship Specialty Start Date End Date Beni Herndon MD [address], [place] PCP - General Internal Medicine 12/23/16 documented as of this encounter
--- OUTSIDE RECORDS SUMMARY | 2024-12-08 14:29 | XMS_ITS | Encounter Summary ---
Author Organization [facility] Address [address] [place] [address] Care Team Providers Care Medical Registrar Name Role Phone Beni Herndon MD Primary Care Provider [phone] Encounter Details Date Type Department Care Team (Latest Contact Info) Description 12/02/2024 Plan of Care Documentation Outpatient Rehabilitation - [address] [phone] Social History Tobacco Use Types Packs/Day Years [...] ed Within the last 3 months, ho devika many times did you visit the emergency [...] care for your loved ones. For example, vocational childcare teacher or elderly care for an older [...] Notes * Neto Diaz, PT - 12/02/2024 6:21 PM EST Images from the original note were not included. [facility] - Outpatient PHYSICAL THERAPY EVALUATION Date: 12/02/2024 Visit Number: 1 Patient Name: Jerrell De Los Santos : 1985 Age: 39 y.o. Gender: male Diagnosis: ICD-10-CM ICD-9-CM 1. Acute low back pain with sciatica, sciatica laterality unspecified, unspecified back pain laterality M54.40 724.2 Ambulatory referral to Physical Therapy and Athletic Training 724.3 Date of Onset/Surgery: 11/07/2024 Referring Provider: Cj Esquivel, * Insurance: Payor: [facility] PLAN / Plan: [facility] MEDICAID / Product Type: *No Product type* / Patient identified by: Neto Diaz PT Language: Speaks and understands Burkinan as preferred language with no cupboard builder required Chart Reviewed: Yes Medications: Current Outpatient [...] of Cholelithiasis (07/07/2024), Foot drop, Hypothyroid, Opiate dependence([facility]), and Overweight. has no past surgical history [...] 2nd floor apartment. W/D are in apartment. 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 R hand dominant. Prior Level of Function: [...] High time effort (typically 45 minutes) spent [id number] with the patient and/or family Documentation completed by Neto Diaz PT OUTPATIENT REHABILITATION [address] [address] Dept: [phone] Dept PATIENT NAME: Jerrell De Los Santos [...] Description 12/13/2024 9:30 AM EST Treatment Outpatient [address] [phone] Miguelangel Padilla, ANIMAL EVISCERATOR 12/17/2024 8:30 AM EST Treatment Outpatient Rehabilitation - [address] [phone] Miguelangel Padilla, ANIMAL EVISCERATOR 01/03/2025 9:15 AM EST Office Visit Adult Medicine [address] [phone] Cj Esquivel PA [address] [place], [place] documented as of this encounter Goals [...] documented as of this encounter Care Teams Medical Registrar Relationship Specialty Start Date End Date Beni Herndon MD [address] [place] [address] PCP - General Internal Medicine 12/23/16 documented as of this encounter
--- OUTSIDE RECORDS SUMMARY | 2024-12-08 14:29 | XMS_ITS | Encounter Summary ---
Author Organization [employer] Address [address] [place] [address] Care Team Providers Care Flame Channeler Name Role Phone Beni Herndon MD Primary Care Provider [phone] Reason for Visit * Reason Comments Back Pain Encounter Details Date Type Department Care Team (Late st Contact Info) Description 11/29/2024 10:30 AM EST Office Visit Adult Medicine [facility] [place] [address] [place], [place] [phone] Jesus Monahan NP [address] [place], [place] Acute right-sided low back pain with right-sided sciatica (Primary Dx); Hospital discharge follow-up Social History Tobacco Use Types Packs/Day Years [...] care for your loved ones. For example, childcare worker or elderly care for an older adult? [...] 18 11/29/2024 10:19 AM EST Oxygen Saturation - - Inhaled Oxygen Concentration - - Weight 146 kg (321 lb) 11/29/2024 10:19 AM EST Height 190.5 cm (6' 3 ) 11/29/2024 10:19 AM EST Body Mass Index 40.12 11/29/2024 10:19 AM EST documented in this encounter Ordered Prescriptions Prescription Sig Dispensed Refills Start Date End Da te diclofenac (VOLTAREN) 50 mg EC tabletIndications:Acute right-sided low back pain with right-sided sciatica,Hospital discharge follow-up Take 1 tablet (50 mg total) by mouth 2 (two) times a day. Do not crush, chew, or split. 60 each 11/29/2024 12/29/2024 gabapentin (NEURONTIN) 100 mg capsuleIndications:Acute right-sided low back pain with right-sided sciatica,Hospital discharge follow-up Take 1 capsule (100 mg total) by mouth 3 (three) times a day. 90 each 11/29/2024 methylPREDNISolone (MEDROL) 4 mg tabletIndications:Acute right-sided low back pain with right-sided sciatica,Hospital discharge follow-up Take 6 tabs PO on day 1, 5 tabs PO on day 2, 4 tabs PO on day 3, 3 tabs PO on day 2, 2 tabs PO on day 5 and 1 tab PO on day 6. 21 tablet 11/29/2024 documented in this encounter Progress Notes * Roe Lopez MA - 11/29/2024 10:30 AM EST Back pain is radiating down right side. Starts PT 12/03/24 downstairs. Asking for refill of prednisone, given by [facility]. * Jesus Monahan NP - 11/29/2024 10:30 AM EST Images from the original note were not included. Emergency Department Follow Up Note PATIENT'S PCP: Beni Herndon MD LAST VISIT IN THIS DEPARTMENT: 11/23/2024 SUBJECTIVE The patient was discharged from the ER with a diagnosis of: Back pain with injury Discharge Date from ED: 11/19/2024 Facility: [facility] Information was extracted from the emergency room notes. The history was reviewed for accuracy and confirmed by myself. I have reconciled the current and discharge meds. Patient present today for re-evaluation after emergency room visit for lumbar radiculopathy. Jerrell present s/p ER visit for complains of back pain, located primarily in the lumbar region that began 2 weeks ago. He was seen in the office by my colleague who recommend if no improvement is to seek emergency services or follow-up in the office. He thinks this pain started after twisting the lower back. Patient report when he was in high school he had back injury playing football. CT scan of the lumbar spine completed and showed bulging with impingement. See results below. Patient was givenprednisone 20 mg twice daily for 5 days and discharged. Today the patient admits a history of episodic back pain with injury to the lower back. Symptoms have been gradual, unchanged. The pain is positional with movement of low back with radiation of electric type pain down the right leg. The pain is aggravated by movement and twisting. Sneezing, coughing or bearing down does not increase the pain. His pain is not worse at nighttime, patient is worse in the AM. On exam, normal spinal alignment. There was mild tenderness to palpation over the lumbar and paraspinal spine. Straight leg raise test is positive on the right lower extremities. Muscle strength and sensation in the lower extremities are normal bilaterally. Patient reported that he was getting numbness in the right toes, but this has resolved. He did report numbness on the lateral calf area. Patient denies, tingling, weakness in the legs. Patient denies bowel or bladder dysfunction. Hedenies saddle anesthesia. Patient denies weight loss, fever or chills. ROS Review of Systems Constitutional: Negative. Gastrointestinal: Negative. Genitourinary: Negative. Musculoskeletal: Positive for back pain. Skin: Negative. Neurological: Positive for numbness. Hematological: Negative. 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 The following portions of the patient's chart were reviewed in this encounter and updated as appropriate: OBJECTIVE Vitals: 11/29/24 1019 BP: 126/78 BP Location: Left arm Patient Position: Sitting BP Cuff Size: Large adult Pulse: (!) 115 Resp: 18 Temp: 36.6 ??C (97.8 ??F) TempSrc: Temporal Weight: 146 kg (321 lb) Height: 1.905 m (75 ) Body mass index is 40.12 kg/m??. Plan is deferred until next visit Allergies Allergen Reactions Other Swelling Prednisone Swelling ACTIVE MEDICATIONS: Current Outpatient Medications Medication Instructions diclofenac (VOLTAREN) 50 mg, oral, 2 times daily, Do not crush, chew, or split. gabapentin (NEURONTIN) 100 mg, oral, 3 times daily levothyroxine (SYNTHROID, LEVOTHROID) 75 mcg tablet 1 tablet, oral, Daily methadone (DOLOPHINE) 10 mg/mL concentrated solution oral, Takes 151 mg daily methylPREDNISolone (MEDROL) 4 mg tablet Take 6 tabs PO on day 1, 5 tabs PO on day 2, 4 tabs PO on day 3, 3 tabs PO on day 2, 2 tabs PO on day 5 and 1 tab PO on day 6. omeprazole (PRILOSEC) 20 mg, oral, Daily Physical Exam Vitals reviewed. Constitutional: Appearance: Normal appearance. Abdominal: General: Bowel sounds are normal. Palpations: Abdomen is soft. Musculoskeletal: General: Tenderness and signs of injury present. Lumbar back: Signs of trauma and bony tenderness present. Positive right straight leg raise test. Comments: Patient report pain after twisting lower back. Skin: General: Skin is warm and dry. Neurological: General: No focal deficit present. Mental Status: He is alert. Mental status is at baseline. IMAGING CT scan of the lumbar spine without contrast Exam date 11/19/24 at [facility] Impression There is a 5 mm grade 1 spondylolithiasis L5-S1. There is an associated disc bulge which is asymmetrical prominent to the right neuroforamen at the level, resulting in severe right neural tompkins impingement. No additional bony abnormality aside from multilevel mild degenerative facet changes Congenital spinal canal narrowing is present L2-L4, which is exacerbated by mild dorsal epidural lipomatosis at this level. There is a moderate central canal stenosis at L3-4 Diffuse fatty infiltrate of the liver with mild liver and enlargement Cholelithiasis X-ray of the lumbar spine Date of exam: 11/19/2024 Impression: No acute fractures or gross listhesis. The possibility of a subtle grade 1 Ethril listhesis of L5-S1 cannot be entirely excluded. CT scan versus MRI of the lumbar spine recommended. LABORATORY: No pertinent labs Assessment & Plan Acute right-sided low back pain with right-sided sciatica Patient is to rest the injured area as much as practical possible, apply moist heat 3 times per dayas needed. We discussed stretching. I will start patient on a Medrol pack and gabapentin. Once patient finished Metra pack he can startdiclofenac 50 mg twice daily with gabapentin. Patient was educated over the adverse effects of these medications. Patient agree to to Physical Therapy, per patient is start physical therapy . Call or return to clinic if neurological symptoms develop or if symptoms worsen or fail to improve as anticipated. Seek emergency service if you develop bladder or bowel dysfunction. Patient understands the plan and in agreement with the plan. Orders: methylPREDNISolone (MEDROL) 4 mg tablet; Take 6 tabs PO on day 1, 5 tabs PO on day 2, 4 tabs PO on day 3, 3 tabs PO on day 2, 2 tabs PO on day 5 and 1 tab PO on day 6. gabapentin (NEURONTIN) 100 mg capsule; Take 1 capsule (100 mg total) by mouth 3 (three) times a day. diclofenac (VOLTAREN) 50 mg EC tablet; Take 1 tablet (50 mg total) by mouth 2 (two) times a day. Donot crush, chew, or split. Hospital discharge follow-up Orders: methylPREDNISolone (MEDROL) 4 mg tablet; Take 6 tabs PO on day 1, 5 tabs PO on day 2, 4 tabs PO on day 3, 3 tabs PO on day 2, 2 tabs PO on day 5 and 1 tab PO on day 6. gabapentin (NEURONTIN) 100 mg capsule; Take 1 capsule (100 mg total) by mouth 3 (three) times a day. diclofenac (VOLTAREN) 50 mg EC tablet; Take 1 tablet (50 mg total) by mouth 2 (two) times a day. Donot crush, chew, or split. FOLLOW-UP: No follow-ups on file. Jesus Monahan NP ADULT MEDICINE [address] Today's documentation was made using voice recognition software.This note may contain grammatical errors secondary to this software. documented in this encounter Plan of Treatment Upcoming Encounters Date Type Department Care Team (Late st Contact Info) Description 12/13/2024 9:30 AM EST Treatment Outpatient [address] [phone] Miguelangel Padilla, CLIENT ADVOCATE 12/17/2024 8:30 AM EST Treatment Outpatient Rehabilitation - [address] [phone] Miguelangel Padilla, CLIENT ADVOCATE 01/03/2025 9:15 AM EST Office Visit [address] [phone] Cj Esquivel PA [address] [place], [place] documented as of this encounter Visit Diagnoses Diagnosis Acute right-sided low back pain with right-sided sciatica- Primary Hospital discharge follow-up Other follow-up examination documented in this encounter Discontinued Medications Medication Sig Discontinue Reason Start Date End Da te loperamide (IMODIUM A-D) 2 mg tablet Take 1 tablet (2 mg total) by mouth. 07/05/2024 11/29/2024 clotrimazole (LOTRIMIN) 1 % cream Apply topically 2 (two) times a day. Affected area in groin 10/20/2024 11/29/2024 amoxicillin-clavulanate (AUGMENTIN) 875-125 mg per tablet Take 1 tablet by mouth 2 (two) times a day. 10/20/2024 11/29/2024 diclofenac (VOLTAREN) 50 mg EC tablet Take 1 tablet (50 mg total) by mouth 2 (two) times a day. Do not crush, chew, or split. Reorder 11/11/2024 11/29/2024 documented as of this encounter Additional Health Concerns Assessment Noted Time PHQ-9 Depression Total Score: 0 11/28/19 25 4:21 PM EST documented as of this encounter Care Teams Flame Channeler Relationship Specialty Start Date End Date Beni Herndon MD [address] [place] [address] PCP - General Internal Medicine 12/23/16 documented as of this encounter
[2024-12-08 15:23] LABS: Alanine Aminotransferase 28 U/L (0-40); Albumin Level 3.6 g/dL (3.5-5.0); Alkaline Phosphatase 66 U/L (39-117); Anion Gap 9 (12-20); Aspartate Amino Transferase 21 U/L (5-37); Bilirubin Direct 0.1 mg/dL (0.0-0.5); Bilirubin Total 0.3 mg/dL (0.0-1.0); Blood Urea Nitrogen 10 mg/dL (9-16); Calcium 8.2 mg/dL (8.4-10.2); Carbon Dioxide 27 mmol/L (22-29); Chloride 103 mmol/L (96-108); Creatinine Clr Calc Pharmacy 258.2; Estimated Glomerular Filt Rate > 60; Glucose Random 112 mg/dL (60-115); Lipase 28 U/L (8-78); Potassium 3.9 mmol/L (3.3-5.1); Sodium 135 mmol/L (135-145); Total Protein 7.8 g/dL (6.5-8.0)
[2024-12-08] MEDS: iohexoL 350 MG/ML 100 ML INFUS..BTL IV (16:39)
[2024-12-08 17:21] VITALS: BP 137/76; PULSE 80; RESP 18; TEMP 36.7; O2SAT 94
[2024-12-08 18:28] VITALS: BP 137/76; PULSE 80; RESP 18; TEMP 36.7; O2SAT 94
== END 2024-12-08 18:29 | disposition home or self-care (01) ==
PROVIDERS: Emergency Provider Emergency Medicine; PCP Internal Medicine
DX: M54.16 Radiculopathy, lumbar region (principal); M54.50 Low back pain, unspecified
CPT/HCPCS: 36415; 72131; 74177; 80048; 80076; 83690; 85025; 96372; 99283; 99284; J1885; Q9967

== ENCOUNTER → 2024-12-08 13:55 | Outpatient (BNV) | payer OTHER, SELFPAY | PROVIDERS: Emergency Provider Emergency Medicine; PCP Internal Medicine; Visit Provider Radiology Diagnostic Radiology | DX: M43.17 Spondylolisthesis, lumbosacral region (principal); K80.20 Calculus of gallbladder without cholecystitis without obstruction | CPT/HCPCS: 72131; 74177 ==

== ENCOUNTER 2025-06-06 11:05 | Emergency (ER) | payer OTHER, SELFPAY ==
[2025-06-06 12:31] VITALS: BP 124/93; PULSE 125; RESP 18; TEMP 36.8; O2SAT 97; BMI 40.4
--- NOTE | 2025-06-06 12:32 | ED.GENADULT ---
HPI - General Adult General Chief complaint: Abdominal Pain Stated complaint: constipation abd pain Time Seen by Provider: 06/06/25 15:49 Source: patient Mode of arrival: ambulatory Limitations: no limitations History of Present Illness ED Provider: Dr. Marvin Santiago HPI narrative: 40-year-old male who presents emergency department for evaluation of abdominal pain and constipation. The patient states he usually moves his bowels every other day. He states the last 2 weeks he has not been able to have a bowel movement. He was evaluated by his PCP and was started on a laxative. He states that he took the laxative on Friday06/04/2025 (2 days prior) . He states that he had diarrhea but did not have a significant bowel movement. He was seen by his doctor today and was told that he had an elevated white blood cell count and that you should go to the emergency department for evaluation and possible CT scan to evaluate for possible diverticulitis. The patient states that he has a sensation that he has to move his bowels but he is not really having abdominal pain he denied fever or chills. He states that he had nausea with 1 or 2 episodes of vomiting. He denied any dark black stools or bloody stools. He states that he has lost some weight since he has not been eating over the past 2 weeks but can not quantify the amount of weight that he lost. He denied night sweats. Patient is on methadone 150 mg daily, his doses not changed. He denies any new medications. He has not had any change in his diet. Related Data Previous Rx's ?Medication ?Instructions ?Recorded acetaminophen 325 mg tablet 650 mg (2 x 325 mg) PO Q6H PRN 11/19/24 (Tylenol) fever or pain #30 tabs cyclobenzaprine 10 mg tablet 10 mg PO BEDTIME PRN muscle spasm 11/19/24 #7 tabs diazepam 2 mg tablet (Valium) 2 mg PO BID PRN muscle spasm #10 11/19/24 tabs ketorolac 10 mg tablet 10 mg PO TID PRN pain 5 days #15 11/19/24 tabs prednisone 20 mg tablet 40 mg (2 x 20 mg) PO DAILY 5 days 11/19/24 #10 tabs cyclobenzaprine 10 mg tablet 10 mg PO TID PRN muscle spasm #14 12/08/24 tabs Allergies Allergy/AdvReac Type Severity Reaction Status Date / Time bee pollen (BEE STINGS) Allergy Unknown SWELLING Verified 06/06/25 12:34 bee stings Allergy Unknown inflammatio Uncoded 06/06/25 12:34 n Review of Systems Review of Systems: Yes all other systems are reviewed and are negative [facility] Past Medical History [facility] Narrative: Social history: Patient does smoke cigarettes. He occasionally drinks alcohol. The patient has a history of opiate use disorder but he has been sober times 16 years in his on methadone 150 mg daily, his doses not changed. Social History Social History Advance Directives: No Advance Directives Information Provided: No Physical Exam ED Vital Signs: Vital Signs - 24 hr 06/06/25 12:31 06/06/25 15:44 Temperature 98.2 F 97.3 F Pulse Rate 125 H 94 Respiratory Rate 18 16 Blood Pressure 124/93 H 130/79 Pulse Oximetry 97 97 Oxygen Delivery Method Room Air Room Air BMI result Body Mass Index 40.4 Vital signs revealed elevated heart rate of 125 otherwise unremarkable Exam: General: Awake, alert in no distress Head: Normocephalic, atraumatic EENT: PERRL, Lids normal, sclera normal, conjunctiva normal, nose normal , ears normal, throat without erythema or exudates Neck: Supple, no adenopathy Lung: breath sounds symmetric, no wheezing, rales or rhonchi Chest: symmetric movement, nontender Heart: regular rate and rhythm, normal S1, S2 no murmurs or rubs Abdomen: soft, non-tender, nondistended, normal bowel sounds Rectal: No external hemorrhoids, sphincter tone normal, no impaction on digital exam Back: no vertebral tenderness, no CVAT Extremities: no deformities, moves all extremities symmetrically Neuro: Awake, alert, oriented, normal speech, cranial nerves intact, moves all extremities symmetrically Psych: Pleasant, cooperative Course Course Course Narrative: This is a rapid medical exam performed by Frankie Yoder NP: Additional HPI, ROS, PE not included below will be deferred to primary provider. Patient is a 40-year-old male presenting with complaint of constipation/diarrhea and abdominal pain. Sent here by PCP for CT, c/f diverticulitis. Afebrile in triage, hR 125. Plan: Labs, UA Medical Decision Making Medical Decision Making [facility] Narrative: 40-year-old male who presents emergency department for evaluation of abdominal pain and constipation. The patient states he usually moves his bowels every other day. He states the last 2 weeks he has not been able to have a bowel movement. He was evaluated by his PCP and was started on a laxative. He states that he took the laxative on Friday06/04/2025 (2 days prior) . He states that he had diarrhea but did not have a significant bowel movement. He was seen by his doctor today and was told that he had an elevated white blood cell count and that you should go to the emergency department for evaluation and possible CT scan to evaluate for possible diverticulitis. The patient states that he has a sensation that he has to move his bowels but he is not really having abdominal pain he denied fever or chills. He states that he had nausea with 1 or 2 episodes of vomiting. He denied any dark black stools or bloody stools. He states that he has lost some weight since he has not been eating over the past 2 weeks but can not quantify the amount of weight that he lost. He denied night sweats. Patient is on methadone 150 mg daily, his doses not changed. He denies any new medications. He has not had any change in his diet. Vital signs revealed an elevated heart rate otherwise unremarkable. Patient had no abdominal tenderness on his abdominal exam. Rectal exam revealed no impaction on digital exam. Differential diagnosis: ?Includes but is not limited to bowel obstruction, stool impaction, obstipation, constipation, diverticulitis, anemia, electrolyte abnormalities Course: 16:21 My independent interpretation patient's laboratory evaluation is as follows: WBC elevated 15,100. H&H was normal. Glucose elevated 129. BUN and creatinine were normal. Lactic acid was normal. LFTs were normal. Patient's abdominal exam revealed no tenderness and he was nondistended with normoactive bowel sounds therefore I doubt that he has diverticulitis or a bowel. Rectal exam revealed no impaction. I ordered a soapsuds enema for the patient. 17:46 The patient had a significant bowel movement after the enema. Patient was advised to take Metamucil daily for the next 2 weeks, Colace 100 mg b.i.d. x1 month, extra-strength Senokot 2 pills twice a day for 4 days as needed for bowel movements. He was given printed and verbal instructions on constipation and discharged home. Admission/Observation Consideration of admission/observation: Escalation of care including admission/observation considered Lab Data MDM Lab Attestation statement: I reviewed the patient's lab results. 06/06/25 12:52 06/06/25 12:51 Labs: Lab Results 06/06/25 06/06/25 06/06/25 Range/Units 12:51 12:52 12:58 WBC 15.1 H (4.8-10.8) X10*3/uL RBC 4.96 (4.60-5.80) X10*6/uL Hgb 14.9 (14.0-18.0) g/dl Hct 44.2 (42.0-52.0) % MCV 89.1 (80.0-98.0) fL MCH 30.0 (27.0-33.0) pg MCHC 33.7 (31.0-36.0) g/dl RDW 13.1 (11.0-16.0) % Plt Count 299 (160-400) X10*3/uL MPV 9.5 (9.4-12.4) fL Immature Gran % (Auto) 1.5 H (0.0-0.4) % Neut % (Auto) 56.3 (45-73) % Lymph % (Auto) 33.4 (20-40) % [place] % (Auto) 7.3 (2-11) % Eos % (Auto) 0.8 (0-4) % Baso % (Auto) 0.7 (0-2) % Lymph # (Auto) 5.0 H (1.2-4.9) X10*3/uL [place] # (Auto) 1.1 (0.1-1.2) X10*3/uL Eos # (Auto) 0.1 (0.0-0.4) X10*3/uL Baso # (Auto) 0.1 (0.0-0.2) X10*3/uL Abs Immat Gran (auto) 0.22 H (0.00-0.03) X10*3/uL Absolute Neuts (auto) 8.5 H (2.0-8.3) x10*3/uL Absolute Nucleated RBC 0.000 (0.0-0.012) X10*3/uL Nucleated RBC % (auto) 0.0 (0.0-0.2) /100WBC Smear Tech's Comments VERIFIED Sodium 140 (135-145) mmol/L Potassium 3.3 (3.3-5.1) mmol/L Chloride 101 (96-108) mmol/L Carbon Dioxide 27 (22-29) mmol/L Anion Gap 15 (12-20) BUN 8 L (9-16) mg/dL Creatinine 0.74 (0.5-1.4) mg/dL Estim Creat Clear Calc 186.9 Estimated GFR > 60 Random Glucose 129 H (60-115) mg/dL Lactic Acid 1.9 (0.5-2.0) mmol/L Calcium 9.4 D (8.4-10.2) mg/dL Magnesium 2.0 (1.6-2.6) mg/dL Total Bilirubin 0.3 (0.0-1.0) mg/dL AST 23 (5-37) U/L ALT 29 (0-40) U/L Alkaline Phosphatase 74 (39-117) U/L Total Protein 8.4 H (6.5-8.0) g/dL Albumin 4.4 (3.5-5.0) g/dL Urine Color Dark Yellow Urine Appearance Clear Urine pH 5.5 (5.0-9.0) Ur Specific [place] 1.020 (1.005-1.025) Urine Protein Negative (Neg-Trace) mg/dL Urine Glucose (UA) Negative (Negative) mg/dL Urine Ketones Trace (Negative) mg/dL Urine Blood Negative (Negative) Urine Nitrite Negative (Negative) Ur Leukocyte Esterase Negative (Negative) Discharge Plan Discharge Clinical Impression: Constipation Patient Disposition: Home, Self-Care Instructions: Constipation (DC) Additional Instructions: Your blood work did reveal an elevated white blood cell count of 15.1 but this is nonspecific. Your blood glucose was elevated 129-this has nonspecific as well and does not mean that you have diabetes. You did not have any tenderness on your abdominal exam therefore I do not think that you have an infection such as diverticulitis. Your rectal exam did not reveal a stool impaction. You were given a soapsuds enema in you had a large bowel movement. Take Colace 100 mg pills 1 pill twice a day for 1 month. This is a stool softener that is available [id number]. Take Metamucil 1 tsp in 8 oz of water once a day for 1 month. This has a fiber supplement that will help you move your bowels. If you do not have a good bowel movement in 4 days then take extra-strength Senokot 2 pills twice a day for 4 days. This has a laxative and should help you move your bowels. If the Senokot that has not help you move your bowels in 4 days then use an [id number] Fleet's enema to help move your bowels Follow-up with your doctor in 2 days. Please return to the emergency department if your symptoms get worse or if you develop any symptoms that are concerning to you. Prescriptions: No Action cyclobenzaprine 10 mg tablet 10 mg PO BEDTIME PRN (Reason: muscle spasm) Qty: 7 0RF acetaminophen [Tylenol] 325 mg tablet 650 mg PO Q6H PRN (Reason: fever or pain) Qty: 30 0RF ketorolac 10 mg tablet 10 mg PO TID PRN (Reason: pain) 5 Days Qty: 15 0RF Rx Instructions: Tolerated IM or IV in department diazepam [Valium] 2 mg tablet 2 mg PO BID PRN (Reason: muscle spasm) Qty: 10 0RF prednisone 20 mg tablet 40 mg PO DAILY 5 Days Qty: 10 0RF cyclobenzaprine 10 mg tablet 10 mg PO TID PRN (Reason: muscle spasm) Qty: 14 0RF Print Language: [place]
--- NOTE | 2025-06-06 12:35 | ECG_ITS ---
Test Reason : TACHY Blood Pressure : */* mmHG Vent. Rate : 80 BPM Atrial Rate : 80 BPM P-R Int : 164 ms QRS Dur : 100 ms QT Int : 388 ms P-R-T Axes : 50 66 47 degrees QTcB Int : 447 ms Normal sinus rhythm Normal ECG No previous ECGs available Referred By: Ledy Yoder Electronically Signed By: MIGUEL CHING MD
[2025-06-06 13:01] LABS: Hematocrit 44.2 % (42.0-52.0); Hemoglobin 14.9 g/dl (14.0-18.0); Imm Gran Abs Auto 0.22 X10*3/uL (0.00-0.03); Imm Gran Pct Auto 1.5 % (0.0-0.4); Lymphocytes Absolute Auto 5.0 X10*3/uL (1.2-4.9); Mean Corpuscular HGB Conc 33.7 g/dl (31.0-36.0); Mean Corpuscular Hemoglobin 30.0 pg (27.0-33.0); Mean Corpuscular Volume 89.1 fL (80.0-98.0); NRBC Abs Auto 0.000 X10*3/uL (0.0-0.012); NRBC Pct Auto 0.0 /100WBC (0.0-0.2); Platelet Count 299 X10*3/uL (160-400); Red Blood Count 4.96 X10*6/uL (4.60-5.80); SCAN SMEAR FLAG 1; White Blood Count 15.1 X10*3/uL (4.8-10.8)
[2025-06-06 13:15] LABS: Alanine Aminotransferase 29 U/L (0-40); Albumin Level 4.4 g/dL (3.5-5.0); Alkaline Phosphatase 74 U/L (39-117); Anion Gap 15 (12-20); Aspartate Amino Transferase 23 U/L (5-37); Blood Urea Nitrogen 8 mg/dL (9-16); Calcium 9.4 mg/dL (8.4-10.2); Carbon Dioxide 27 mmol/L (22-29); Chloride 101 mmol/L (96-108); Creatinine Clr Calc Pharmacy 186.9; Estimated Glomerular Filt Rate > 60; Magnesium 2.0 mg/dL (1.6-2.6); Potassium 3.3 mmol/L (3.3-5.1); Sodium 140 mmol/L (135-145); Total Protein 8.4 g/dL (6.5-8.0)
--- NOTE | 2025-06-06 13:15 | MHC.EDTECH ---
EKG machine is not available.
[2025-06-06 13:41] LABS: Appearance Urine Clear; Glucose Urine UA Negative (Negative); PH 5.5 (5.0-9.0); Specific Gravity - Urine 1.020 (1.005-1.025)
[2025-06-06 13:48] LABS: MANUAL DIFF FLAG SCAN
--- NOTE | 2025-06-06 14:15 | MHC.EDTECH ---
Called to do the EKG no answer.
--- NOTE | 2025-06-06 15:13 | MHC.EDTECH ---
Called again to do the EKG, but there was no answer.
[2025-06-06 15:44] VITALS: BP 130/79; PULSE 94; RESP 16; TEMP 36.3; O2SAT 97
--- OUTSIDE RECORDS SUMMARY | 2025-06-06 16:12 | XMS_ITS | Clinical Summary ---
Author Organization [facility] [address] [place] [address] [place] [phone] Phone Care Team Providers Care Performance Engineer Name Role Phone Beni Herndon MD Primary Care Provider [phone] Allergies Active Allergy Reactions Criticality Noted Date Comments Beesix Hives 04/05/2025 Medications methadone (DOLOPHINE) 10 mg/mL concentrated solution Take by mouth. Takes 151 mg daily Active omeprazole (PriLOSEC) [address] capsule Take 1 capsule (20 mg total) by mouth 1 (one) time each day. 90 each 1 10/20/20 24 025 Active levothyroxine (SYNTHROID, LEVOTHROID) 88 mcg tablet Take 1 tablet (88 mcg total) by mouth 1 (one) time each day. 90 each 3 12/01/19 25 026 Active cyclobenzaprine (FLEXERIL) 10 mg tablet Take 1 tablet (10 mg total) by mouth at bedtime as needed for muscle spasms. 60 tablet 02/05/20 25 Active gabapentin (NEURONTIN) 100 mg capsuleIndicatio ns:Acute right-sided low back pain with right-sided sciatica,Hospita l discharge follow-up Take 1 capsule (100 mg total) by mouth 3 (three) times a day. 90 each 1 04/14/20 25 Active senna-docusate (PERICOLACE) 8.6-50 mg per tablet Take 2 tablets by mouth 1 (one) time each day. 60 each 1 05/30/20 25 Active triamcinolone (KENALOG) 0.1 % cream Apply to affected area 1-2 times daily as needed. 15 g 04/05/20 25 025 Discontinued Active Problems Problem Noted Date Diagnosed Date Cholelithiasis 07/07/2024 Overview (10/06/2024): Patient was having generalized abdominal discomfort, most consistent with viral illness. Labs that showed elevated white count so CT was obtained. The CT did show some evidence of gallstones without any wall thickening. There is no evidence of cholecystitis. Low testosterone 04/26/2020 Bilateral leg edema 08/03/2018 [place]ad[place] [facility] [place] 08/03/2018 Gastroesophageal reflux disease without esophagi tis 04/23/2017 Iron deficiency anemia 04/22/2017 Morbid obesity [place] [place] [facility] [place] 2016 Anterolisthesis 12/25/2016 Hypothyroidism 12/25/2016 Opioid dependence in remission [place] [place] [facility] V[facility]) 12/25/2016 Encounters Date Type Department Care Team Description 06/06/2025 10:00 AM EDT Office Visit [address] [phone] Beni Herndon MD Generalized abdominal pain (Primary Dx); Diarrhea, unspecified type; Leukocytosis, unspecified type; Tachycardia 06/01/[address] [phone] Jesus Mnoahan NP Lab Results (WBC elevated /Total protein elevated) 05/30/2025 11:56 AM EDT - 05/30/2025 11:59 PM EDT Hospital Encounter [address] [phone] Constipation, unspecified constipation type; Encounter for lipid screening for cardiovascular disease Discharge Disposition: Home or Self Care 05/30/2025 11:30 AM EDT Office Visit [address] [phone] Jesus Monahan NP Generalized abdominal pain (Primary Dx); Constipation, unspecified constipation type; Tick bite, unspecified site, subsequent encounter; Encounter for lipid screening for cardiovascular disease 05/30/2025 Telephone Adult Medicine [address] [phone] Beni Herndon MD 04/05/2025 10:30 AM EDT Office Visit Adult Medicine [address] [phone] Jesus Monahan NP Irritant contact dermatitis, unspecified trigger (Primary Dx) from Last 3 Months Immunizations Name Administration Dates Next Due Tdap Tetanus diptheria acell ular pertussis (Boostrix; Adacel) 7yo and older 11/11/2024 Medical History Medical History Date Comments Foot drop DX:Foot drop Overweight DX:Overweight Opiate dependence (CMS/HCC V 24, CMS/HCC V28) DX:Opiate dependence (HCC) Hypothyroid DX:Hypothyroid Cholelithiasis 07/07/2024 DX:Cholelithiasi [...] for your loved ones. For example, childcare attendant or elderly care for an older adult? [...] Assigned at Male 04/19/2024 7:35 AM EDT Legal Sex Male 1:28 AM EST Gender Identity Male 04/19/2024 7:35 AM EDT Sexual Orientation Straight 04/19/2024 7: 35 AM EDT Obstetrics History Last Filed Vital Signs Vital Sign Reading Time Taken Comments Blood Pressure 122/74 06/06/2025 10:05 AM EDT Pulse 102 06/06/2025 10:05 AM EDT Temperature 36.6 C (97.8 F) 06/06/2025 10:05 AM EDT Respiratory Rate 16 06/06/2025 10:05 AM EDT Oxygen Saturation 98% 06/06/2025 10:05 AM EDT Inhaled Oxygen Concentration - - Weight 134 kg (296 lb) 06/06/2025 10:05 AM EDT Height 182.9 cm (6') 06/06/2025 10:05 AM EDT Body Mass Index 40.14 06/06/2025 10:05 AM EDT Plan of Treatment Health Maintenance Due Date Last Done Comments Hepatitis A Vaccines (1 of 2 - Risk 2-dose series) 2003 Hepatitis B Vaccines (1 of 3 - 19+ 3-dose series) 2003 Pneumococcal Vaccine: Pediatrics (0 to 5 Years) and At-Risk Patients (6 to 49 Years) (1 of 2 - PCV) 2003 HIV Screening 10/13/2022 Hepatitis C Screening 10/13/2022 COVID-19 Vaccine (4 - 2023-2 5 season) 2024 04/18/2022, 03/24/2021, 03/02/2021 Influenza Vaccine (#1) 2025 Social Influencers of Health Screening 10/06/2025 10/06/2024 Cholesterol Screening (Lipid Panel) 11/29/2029 11/29/2024 DTaP,Tdap,and Td Vaccines (2 - Td or Tdap) 11/11/2034 11/11/2024 Depression Screening Completed 11/28/2024 HIB Vaccines Aged Out No longer eligi [...] patient's age to complete this topic Meningococcal B Vaccine Aged Out No l onger eligible based on patient's age to complete [...] Procedure Name Priority Date/Time Associated Diagnosis Comments MANUAL DIFFERENTIAL - SYSMEX WAM Routine 05/30/2025 12:18 PM EDT Constipation, unspecified constipation type Encounter for lipid screening for cardiovascular disease CBC WITH AUTO DIFFERENTIAL Routine 05/30/2025 12:18 PM EDT Constipation, unspecified constipation type Encounter for lipid screening for cardiovascular disease COMPREHENSIVE METABOLIC PANEL Routine 05/30/2025 12:18 PM EDT Constipation, unspecified constipation type Encounter for lipid screening for cardiovascular disease CBC AND DIFFERENTIAL Routine 05/30/2025 12:18 PM EDT Constipation, unspecified constipation type Encounter for lipid screening for cardiovascular disease BORRELIA BURGDORFERI ANTIBODY Routine 05/30/2025 12:18 PM EDT Encounter for lipid screening for cardiovascular disease XR ABDOMEN 1 VIEW Routine 05/30/2025 12: 01 PM EDT Constipation, unspecified constipation type Encounter for lipid screening for cardiovascular disease LIPID PANEL WITH REFLEX TO DIRECT LDL Routine 11/29/2024 11:28 AM EST Routine general medical examination at a [facility] from Last 3 Months or Most Recently Relevant to Health Maintenance Results * (ABNORMAL) Manual differential (05/30/2025 12:18 PM EDT) Neutrophils % 68.0 % LAB HEMETOLOGY METHOD 05/30/2025 4:17 PM EDT [facility] Lymphocytes % 26.0 % LAB HEMETOLOGY METHOD 05/30/2025 4:17 PM EDT [facility] Reactive Lymphocyte 2.00 % LAB HEMETOLOGY METHOD 05/30/2025 4:17 PM EDT [facility] Monocytes % 2.0 % [facility] Eosinophils % 2.0 % [facility] Basophils % 1.0 % LAB [facility]EMETOLOGY [facility] Neutrophils Absolute Manual 11.22(H) 1.50 - 7.00 K/mcL LAB HEMETOLOGY METHOD 05/30/2025 4:17 PM [facility] Lymphocytes Absolute 4.29 1.00 - 5.00 K/mcL LAB HEMETOLOGY METHOD 05/30/2025 4:17 PM [facility] Reactive Lymph Abs Manual 0.33(H) 0.00 - 0.00 lym LAB HEMETOLOGY METHOD 05/30/2025 4:17 PM [facility] Monocytes Absolute Manual 0.33 0.20 - 1.00 K/mcL LAB HEMETOLOGY METHOD 05/30/2025 4:17 PM [facility] Eosinophils Absolute Manual 0.33 0.00 - 0.50 K/mcL LAB HEMETOLOGY METHOD 05/30/2025 4:17 PM [facility] Basophils Absolute Manual 0.17 0.00 - 0.20 K/mcL LAB HEMETOLOGY METHOD 05/30/2025 4:17 PM EDT [facility] Rbc Morphology Present( A) Consistent with indices, Normal for LAB HEMETOLOGY METHOD 05/30/2025 4:17 PM EDT [facility] Comment:RBC: Morphology agre es with CBC Platelet Morphology - WAM See Note(A) Normal LAB HEMETOLOGY METHOD 05/30/2025 4:17 PM EDT [facility] Comment:PLT: Normal Occ. clu mps present, adequate. Blood Venous blood specimen / Unknown Venipuncture / Unknown 05/30/2025 12:18 PM EDT 05/30/2025 12:18 PM EDT us Jesus Monahan SHIP KEEPER LAB BLOOD ORDERABLES Final R esult [facility] [address] [place] [address], * (ABNORMAL) CBC auto differential (05/30/2025 12:18 PM EDT) WBC 16.5(H) 4.8 - 10.8 K/mcL LAB HEMETOLOGY METHOD 05/30/2025 4:17 PM EDT [facility] RBC 5.00 4.50 - 5.50 M/[facility] LAB HEMETOLOGY METHOD 05/30/2025 4:17 PM EDT [facility] Hemoglobin 14.6 13.5 - 17.5 g/dL LAB HEMETOLOGY METHOD 05/30/2025 4:17 PM EDT [facility] Hematocrit 45.5 42.0 - 54.0 % LAB HEMETOLOGY METHOD 05/30/2025 4:17 PM EDT [facility] MCV 91.2 79.0 - 98.0 FL LAB HEMETOLOGY METHOD 05/30/2025 4:17 PM EDT [facility] MCH 29.3 27.0 - 32.0 pcg LAB HEMETOLOGY METHOD 05/30/2025 4:17 PM EDT [facility] MCHC 32.1 32.0 - 37.0 g/dL LAB HEMETOLOGY METHOD 05/30/2025 4:17 PM EDT [facility] RDW 13.2 11.0 - 15.0 % LAB HEMETOLOGY METHOD 05/30/2025 4:17 PM EDT [facility] Platelets 294 130 - 400 K/mcL LAB HEMETOLOGY METHOD 05/30/2025 4:17 PM EDT [facility] MPV 10.1 7.0 - 11.0 FL LAB HEMETOLOGY METHOD 05/30/2025 4:17 PM EDT [facility] NRBC 0.0 <1.0 % LAB HEMETOLOGY METHOD 05/30/2025 4:17 PM EDT [facility] NRBC Absolute 0.00 <0.10 K/mcL LAB HEMETOLOGY METHOD 05/30/2025 4:17 PM EDT [facility] Blood Venous blood specimen / Unknown Venipuncture / Unknown 05/30/2025 12:18 PM EDT 05/30/2025 12:18 PM EDT Jesus Monahan NP LAB BLOOD ORDERABLES Final R esult [facility] [address] [place] [address], * Borrelia burgdorferi antibody (05/30/2025 12:18 PM EDT) [facility] Lyme Ab Negative Negative LAB CHEMISTRY METHOD 05/31/2025 9:58 AM EDT [facility] Comment: No laboratory evidence of infection with B. burgdorferi (Lyme disease). Negative results may occur in patients recently infected (<=14 days) with B. burgdorferi. If recent infection is suspected, repeat testing on a new sample collected in 7- 14 days is recommended. Blood Venous blood specimen / Unknown Venipuncture / Unknown 05/30/2025 12:18 PM EDT 05/30/2025 12:18 PM EDT us Jesus Monahan SHIP KEEPER LAB BLOOD ORDERABLES Final R esult [facility] [address] [place] [address], [place] [phone] * (ABNORMAL) Comprehensive metabolic panel (05/30/2025 12:18 PM EDT) Sodium 135 133 - 145 mmol/L LAB CHEMISTRY METHOD 05/30/2025 7:59 PM [facility] Potassium 4.3 3.5 - 5.5 mmol/L LAB CHEMISTRY METHOD 05/30/2025 7:59 PM [facility] Chloride 100 96 - 110 mmol/L LAB CHEMISTRY METHOD 05/30/2025 7:59 PM [facility] CO2 27 21 - 32 mmol/L LAB CHEMISTRY METHOD 05/30/2025 7:59 PM [facility] Anion Gap 8 3 - 11 LAB CHEMISTRY METHOD 05/30/2025 7:59 PM [facility] Glucose 118(H) 70 - 100 mg/dL LAB CHEMISTRY METHOD 05/30/2025 7:59 PM [facility] BUN 14 5 - 25 mg/dL LAB CHEMISTRY METHOD 05/30/2025 7:59 PM [facility] Creatinine 0.90 0.70 - 1.30 mg/dL LAB CHEMISTRY METHOD 05/30/2025 7:59 PM [facility] eGFR 110 >=60 mL/min/1. 73m2 LAB CHEMISTRY METHOD 05/30/2025 7:59 PM [facility] Comment:Calculation based on the Chronic Kidney Disease Epidemiology Collaboration (CKD-EPI) equation refit without adjustment for race. BUN/Creatinine Ratio 15.6 LAB CHEMISTRY METHOD 05/30/2025 7:59 PM EDT [facility] Calcium 9.8 8.5 - 10.5 mg/dL LAB CHEMISTRY METHOD 05/30/2025 7:59 PM EDT [facility] AST (SGOT) 19 10 - 42 unit/L LAB CHEMISTRY METHOD 05/30/2025 7:59 PM T [facility] ALT (SGPT) 26 10 - 60 unit/L LAB CHEMISTRY METHOD 05/30/2025 7:59 PM EDT [facility] Alkaline Phosphatase 89 42 - 121 unit/L LAB CHEMISTRY METHOD 05/30/2025 7:59 PM EDT [facility] Total Protein 9.0(H) 6.0 - 8.0 g/dL LAB CHEMISTRY METHOD 05/30/2025 7:59 PM EDT [facility] Albumin 4.0 3.2 - 5.0 g/dL LAB CHEMISTRY METHOD 05/30/2025 7:59 PM EDT [facility] Total Bilirubin 0.4 0.0 - 1.4 mg/dL LAB CHEMISTRY METHOD 05/30/2025 7:59 PM EDT [facility] Blood Venous blood specimen / Unknown Venipuncture / Unknown 05/30/2025 12:18 PM EDT 05/30/2025 12:18 PM EDT us Jesus Monahan SHIP KEEPER LAB BLOOD ORDERABLES Final R esult [facility] [address] [place] [address], * XR Abdomen 1 View (05/30/2025 12:01 PM EDT) Anatomical Region Laterality Modality Body Radiographic Rose ging 05/30/2025 12:0 3 PM EDT Impressions 05/30/2025 12:04 PM EDT Normal study. -------- FINAL REPORT -------- Dictated By: Angie Watson Dictated Date: 05/30/2025 12:03 ET Assigned Physician: Angie Watson Reviewed and Electronically Signed By: Angie Watson Signed Date: 05/30/2025 12:04 ET Workstation ID: [id number] Transcribed By: Self Edit Transcribed Date: 05/30/2025 12:03 ET Narrative 05/30/2025 12:04 PM EDT XR ABDOMEN 1 VIEW HISTORY: Pain and constipation. PRIORS: None. FINDINGS: The kidneys are partially obscured by bowel contents. No radiopaque calculi are seen. There is a nonspecific, nonobstructive bowel gas pattern. No pneumotosis or pneumoperitoneum is seen. Procedure Note Angie Watson MD - 05/30/2025 XR ABDOMEN 1 VIEW HISTORY: Pain and constipation. PRIORS: None. FINDINGS: The kidneys are partially obscured by bowel contents. No radiopaque GUcalculi are seen. There is a nonspecific, nonobstructive bowel gas pattern. No pneumotosisor pneumoperitoneum is seen. IMPRESSION: Normal study. -------- FINAL REPORT -------- Dictated By: Angie Watson Dictated Date: 05/30/2025 12:03 ET Assigned Physician: Angie Watson Reviewed and Electronically Signed By: Angie Watson Signed Date: 05/30/2025 12:04 ET Workstation ID: [id number] Transcribed By: Self Edit Transcribed Date: 05/30/2025 12:03 ET us Jesus Monahan SHIP KEEPER IMG XR PROCEDURES Final Resu lt * (ABNORMAL) Lipid panel with reflex to direct LDL (11/29/2024 11:28 AM EST) [facility] Cholesterol 217(H) 0 - 200 mg/dL LAB CHEMISTRY METHOD 11/29/2024 3:43 PM EST [facility] Triglycerides 314(H) 0 - 150 mg/dL LAB CHEMISTRY METHOD 11/29/2024 3:43 PM EST [facility] HDL 41 >=40 mg/dL LAB CHEMISTRY METHOD 11/29/2024 3:43 PM EST [facility] LDL Calculated 113(H) 0 - 100 mg/dL LAB CHEMISTRY METHOD 11/29/2024 3:43 PM [facility] VLDL Cholesterol Cezar 62.8 mg/dL LAB CHEMISTRY METHOD 11/29/2024 3:43 PM [facility] Non HDL Chol. (LDL+VLDL) 176(H) <145 mg/dL LAB CHEMISTRY METHOD 11/29/2024 3:43 PM [facility] Chol/HDL Ratio 5.3(H) 0.0 - 4.4 LAB CHEMISTRY METHOD 11/29/2024 3:43 PM [facility] Blood Venous blood specimen / Unknown Venipuncture / Unknown 11/29/2024 11:28 AM EST 11/29/2024 11:28 AM EST us Cj YUSUF LAB BLOOD ORDERABLES Fin al Result [facility] [address] [place] [address], from Last 3 Months or Most Recently Relevant to Health Maintenance Insurance [facility] [employer] Care Teams Performance Engineer Relationship Specialty Start Date End Date Beni Herndon MD [address] [place] [id number] PCP - General Internal Medicine 12/23/16
[2025-06-06 17:55] VITALS: BP 130/79; PULSE 94; RESP 16; TEMP 36.3; O2SAT 97
== END 2025-06-06 17:59 | disposition home or self-care (01) ==
PROVIDERS: Registered Nurse Emergency; Emergency Provider Emergency Medicine Emergency Medical Services; PCP Internal Medicine
DX: K59.00 Constipation, unspecified (principal); R00.0 Tachycardia, unspecified; Z79.899 Other long term (current) drug therapy
CPT/HCPCS: 36415; 80053; 81003; 83605; 83735; 85025; 87040; 93005; 99284

== ENCOUNTER → 2025-06-06 12:35 | Outpatient (BNV) | payer OTHER, SELFPAY | PROVIDERS: Emergency Provider Emergency Medicine Emergency Medical Services; PCP Internal Medicine; Visit Provider Internal Medicine Cardiovascular Disease | DX: R00.0 Tachycardia, unspecified (principal) | CPT/HCPCS: 93010 ==